=== PATIENT | male | born 1980 | race Caucasian/White ===

== ENCOUNTER 2016-11-03 09:29 | Emergency (ER) | payer OTHER ==
[~2016-11-03] VITALS: Ht 177.8 cm; Wt 64.0 kg
[~2016-11-03 09:29] MED LIST: CIPR500T4 PO; HYDR-3533 PO
[2016-11-03 09:37] VITALS: BP 129/92; PULSE 90; RESP 20; TEMP 98.1; O2SAT 97
[2016-11-03] MEDS ORDERED: PRED5TAB PO (09:51)
== END 2016-11-03 10:43 | disposition left against medical advice (07) ==
LOC: PHEFT 09:29
DX: M54.2 Cervicalgia (principal); M79.605 Pain in left leg; M54.9 Dorsalgia, unspecified; V89.2XXA Person injured in unspecified motor-vehicle accident, traffic, initial encounter
CPT/HCPCS: 99281

== ENCOUNTER 2016-11-15 17:28 | Emergency (ER) | payer OTHER ==
[~2016-11-15] VITALS: Ht 177.8 cm; Wt 68.0 kg
[~2016-11-15 17:28] MED LIST changes: -CIPR500T4 PO; -HYDR-3533 PO; +PRED5TAB PO
[2016-11-15 17:34] VITALS: BP 116/77; PULSE 60; RESP 16; TEMP 98.1; O2SAT 98
[2016-11-15] MEDS ORDERED: HYDR-3533 PO (18:01)
[2016-11-15] MEDS ORDERED: DOXY100C PO (18:01)
[2016-11-15] MEDS ORDERED: BACT800T5 PO (18:01)
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
[2016-11-15] MEDS ORDERED: ACETAMINOPHEN/HYDROcodone 325 MG/5 MG TAB PO ONE (18:15)
[2016-11-15] MEDS ORDERED: TETANUS/DIPHTHERIA TOXOID ADULT 0.5 ML VIAL IM ONE (18:15)
[2016-11-15] MEDS ORDERED: SULFAMETHOXAZOLE-TRIMETHOPRIM DS 800-160 MG TAB PO ONE (18:15)
== END 2016-11-15 19:39 | disposition home or self-care (01) ==
LOC: PHEFT 17:28
DX: L03.114 Cellulitis of left upper limb (principal); F12.10 Cannabis abuse, uncomplicated; F17.210 Nicotine dependence, cigarettes, uncomplicated; F41.9 Anxiety disorder, unspecified; Z23 Encounter for immunization
CPT/HCPCS: 90471; 90714

== ENCOUNTER 2017-02-24 08:03 | Emergency (ER) | payer SELFPAY ==
[~2017-02-24] VITALS: Ht 177.8 cm; Wt 64.0 kg
[~2017-02-24 08:03] MED LIST changes: +BACT800T5 PO; +DOXY100C PO; +HYDR-3533 PO; -PRED5TAB PO
[2017-02-24 08:08] VITALS: BP 99/61; PULSE 67; RESP 17; TEMP 98.6; O2SAT 100
[2017-02-24] MEDS ORDERED: IBUP-232 PO ×2 (08:24→10:02)
[2017-02-24] MEDS ORDERED: PRED10 PO (08:24)
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
[2017-02-24] MEDS ORDERED: oxyCODONE/ACETAMINOPHEN 5 MG/325 MG TAB PO ONE (08:45)
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
[2017-02-24 09:45] VITALS: RESP 20
[2017-02-24] MEDS ORDERED: PERC5TAB12 PO (10:02)
== END 2017-02-24 10:10 | disposition home or self-care (01) ==
LOC: PHED 08:03
DX: M54.5 Low back pain (principal); F41.9 Anxiety disorder, unspecified; K50.90 Crohn's disease, unspecified, without complications; K21.9 Gastro-esophageal reflux disease without esophagitis; F17.210 Nicotine dependence, cigarettes, uncomplicated; Z79.899 Other long term (current) drug therapy
CPT/HCPCS: 72100; 72220; 99284

== ENCOUNTER 2017-03-08 05:23 | Emergency (ER) | payer OTHER ==
[~2017-03-08] VITALS: Ht 177.8 cm; Wt 68.0 kg
[~2017-03-08 05:23] MED LIST changes: -BACT800T5 PO; -DOXY100C PO; -HYDR-3533 PO; +IBUP-232 PO; +PERC5TAB12 PO; +PRED10 PO
[2017-03-08 05:37] VITALS: BP 100/64; PULSE 62; RESP 20; TEMP 97.9
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
[2017-03-08] MEDS ORDERED: ZOFR4TAB3 SL (06:36)
[2017-03-08] MEDS ORDERED: ROBA750T PO (06:36)
[2017-03-08] MEDS ORDERED: MEDR4PAK PO (06:36)
[2017-03-08 06:40] VITALS: BP 132/76; PULSE 62; RESP 17
[2017-03-08 06:59] LABS: BLOOD, URINE NEG (NEG); GLUCOSE,URINE NEG (NEG); KETONE, URINE NEG (NEG); NITRITE,URINE NEG (NEG); PH, URINE 6.5 (5.0-8.5)
[2017-03-08] MEDS ORDERED: oxyCODONE/ACETAMINOPHEN 5 MG/325 MG TAB PO ONE (07:00)
[2017-03-08] MEDS ORDERED: ONDANSETRON ODT 4 MG TAB PO ONE (07:00)
[2017-03-08 07:09] LABS: METHOD OF COLLECTION CLEAN CATCH; URINE COLOR STRAW (YELLW/STRAW)
[2017-03-08 07:11] LABS: COMMENT (UR) CULT NOT INDICATED; CULTURE IF INDICATED CULT NOT INDICATED; SQUAMOUS EPITHELIAL CELL URINE 0-5 /hpf (0-5)
== END 2017-03-08 07:36 | disposition home or self-care (01) ==
LOC: PHED 05:23
DX: M54.5 Low back pain (principal); S40.011A Contusion of right shoulder, initial encounter; Q43.1 Hirschsprung's disease; K21.9 Gastro-esophageal reflux disease without esophagitis; K50.90 Crohn's disease, unspecified, without complications; F17.210 Nicotine dependence, cigarettes, uncomplicated
CPT/HCPCS: 70450; 71010; 72100; 72125; 73030; 81001

== ENCOUNTER 2017-03-11 15:33 | Emergency (ER) | payer SELFPAY ==
[~2017-03-11] VITALS: Ht 177.8 cm; Wt 65.7 kg
[~2017-03-11 15:33] MED LIST changes: -IBUP-232 PO; +MEDR4PAK PO; -PERC5TAB12 PO; +ROBA750T PO; +ZOFR4TAB3 SL
[2017-03-11 15:43] VITALS: BP 113/67; PULSE 93; RESP 16; TEMP 98.8; O2SAT 97
== END 2017-03-11 15:59 | disposition left against medical advice (07) ==
LOC: PHED 15:33
DX: M54.9 Dorsalgia, unspecified (principal)
CPT/HCPCS: 99281

== ENCOUNTER 2017-06-19 13:19 | Emergency (ER) | payer SELFPAY ==
[~2017-06-19] VITALS: Ht 177.8 cm; Wt 62.0 kg
[2017-06-19 13:37] VITALS: BP 120/53; PULSE 58; RESP 16; TEMP 98.2; O2SAT 98
[2017-06-19] MEDS ORDERED: SODIUM CHLOR 0.9% 1000 ML INJ 1,000 ML IV SCH (13:45)
[2017-06-19] MEDS ORDERED: HYDROmorphone HCL PF 2 MG/ML VIAL IVS ONE (13:45)
[2017-06-19] MEDS ORDERED: ONDANSETRON HCL 4 MG/2 ML VIAL IVP ONE (13:45)
[2017-06-19] MEDS ORDERED: SODIUM CHLORIDE 0.9% FLUSH 10 ML FLUSH IV FLUSH PRN (13:45)
--- NOTE | 2017-06-19 14:03 | PD ---
HPI Chief Complaint: Abdominal Pain Time Seen by Provider: 13:35 Travel History International Travel<30 days: No Contact w/Intl Traveler<30days: No Traveled to known affect area: No History of Present Illness HPI C/O DIFFUSE ABD PAIN, CRAMPY, NONRAD, 04/06, ASSOCIATED WITH MUCOSY STOOLS, STATES HAS H/O CHRON'S DISEASE. ALL: TORADOL-HIVES PSHX: HIRSCHSPRUNG, DIVERTING COLOSTOMY, TAKEDOWN, BOWEL PERFORATION REPAIR, PFSH Past Medical History Blood Disorders: No Anxiety: Yes Depression: No Cancer: No Cardiovascular Problems: No Diminished Hearing: No Endocrine: No Gastrointestinal Disorders: Yes (CROHN'S DISEASE) GERD: Yes Genitourinary: Yes Hiatal Hernia: No Immune Disorder: No Implanted Vascular Access Dvce: No Kidney Stones: Yes Musculoskeletal: Yes (BACK PAIN) Neurologic: No Psychiatric: Yes Reproductive: No Respiratory: No Immunizations Current: No Renal Failure: No Ulcer: Yes Past Surgical History 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 HEAD: Atraumatic. Normocephalic. EYES: Pupils equal and round. No scleral icterus. No injection or drainage. ENT: No nasal bleeding or discharge. Mucous membranes pink and moist. NECK: Trachea midline. No JVD. CARDIOVASCULAR: Regular rate and rhythm. RESPIRATORY: No accessory muscle use. Clear to auscultation. Breath sounds equal bilaterally. GASTROINTESTINAL: Abdomen, nondistended, HYPOACTIVE BOWEL SOUNDS, NO REBOUND, NO RIGIDITY MUSCULOSKELETAL: Extremities without clubbing, cyanosis, or edema. No obvious deformities. NEUROLOGICAL: Awake and alert. No obvious cranial nerve deficits. Motor grossly within normal limits. Five out of 5 muscle strength in the arms and legs. Normal speech. PSYCHIATRIC: Appropriate mood and affect; insight and judgment normal. Data Data Last Documented VS Vital Signs Date Time Temp Pulse Resp B/P (MAP) Pulse Ox O2 Delivery O2 Flow Rate FiO2 06/19/17 14:51 98 Room Air 06/19/17 13:37 98.2 58 16 120/53 (75) Orders Orders Complete Blood Count With Diff (06/19/17 13:45) Comprehensive Metabolic Panel (06/19/17 13:45) Lipase (06/19/17 13:45) Ct Abd/Pel W/O Iv Contrast (06/19/17 13:45) Iv Access Insert/Monitor (06/19/17 13:45) Ecg Monitoring (06/19/17 13:45) Oximetry (06/19/17 13:45) NPO (06/19/17 13:45) Sodium Chloride 0.9% Flush (Ns Flush) (06/19/17 13:45) Ondansetron Odt (Zofran Odt) (06/19/17 14:30) Hydromorphone Pf Inj (Dilaudid Pf Inj) (06/19/17 14:30) Labs Laboratory Tests Test 06/19/17 14:57 White Blood Count 7.2 TH/MM3 Red Blood Count 3.84 MIL/MM3 Hemoglobin 12.0 GM/DL Hematocrit 35.9 % Mean Corpuscular Volume 93.5 FL Mean Corpuscular Hemoglobin 31.3 PG Mean Corpuscular Hemoglobin Concent 33.5 % Red Cell Distribution Width 14.0 % Platelet Count 277 TH/MM3 Mean Platelet Volume 7.4 FL Neutrophils (%) (Auto) 60.1 % Lymphocytes (%) (Auto) 29.4 % Monocytes (%) (Auto) 7.0 % Eosinophils (%) (Auto) 2.4 % Basophils (%) (Auto) 1.1 % Neutrophils # (Auto) 4.3 TH/MM3 Lymphocytes # (Auto) 2.1 TH/MM3 Monocytes # (Auto) 0.5 TH/MM3 Eosinophils # (Auto) 0.2 TH/MM3 Basophils # (Auto) 0.1 TH/MM3 CBC Comment DIFF FINAL Differential Comment Blood Urea Nitrogen 12 MG/DL Creatinine 0.84 MG/DL Random Glucose 85 MG/DL Albumin 3.1 GM/DL Calcium Level 8.5 MG/DL Aspartate Amino Transf (AST/SGOT) 20 U/L Alanine Aminotransferase (ALT/SGPT) 26 U/L Sodium Level 138 MEQ/L Potassium Level 4.0 MEQ/L Chloride Level 105 MEQ/L Carbon Dioxide Level 28.3 MEQ/L Anion Gap 5 MEQ/L Estimat Glomerular Filtration Rate 104 ML/MIN Lipase 217 U/L [facility] Medical Decision Making Medical Screen Exam Complete: Yes Emergency Medical Condition: Yes Medical Record Reviewed: Yes Differential Diagnosis SBO V PANCREATITIS V ILEUS V CHRON'S EXACERBATION Narrative Course CBC WNL, CMP W/O MAJOR ELECTROLYTE ABNL NOR ANY ABNL LFT'S OR LIPASE....CT IS NEGATIVE FOR SBO/PERFORATION OR ANY OTHER SURGICAL EMERGENCY Diagnosis Primary Impression: ACUTE CHRON'S EXACERBATION Patient Instructions: Abdominal Pain (ED), General Instructions Scripts Tramadol (Ultram) 50 Mg Tab 50 MG PO Q6H Y for PAIN, #20 TAB 0 Refills Prov: Zander Charles MD 06/19/17 Metronidazole (Flagyl) 500 Mg Tab 500 MG PO TID for Infection for 7 Days, #21 TAB 0 Refills Prov: Zander Charles MD 06/19/17 Methylprednisolone Dosepak (Medrol Dosepak) 4 Mg Dspk 4 MG PO DIRECTED, #1 DSPK 0 Refills Per Pharmacist direction Prov: Zander Charles MD 06/19/17 Ondansetron Odt (Zofran Odt) 4 Mg Tab 4 MG SL Q6HR Y for Nausea/Vomiting, #30 TAB 0 Refills Prov: Zander Charles MD 06/19/17 Disposition: 01 DISCHARGE HOME Condition: Stable Zander Charles MD Jun 19, 2017 14:03
[2017-06-19] MEDS ORDERED: HYDROmorphone HCL PF 1 MG/ML VIAL IM ONE (14:30)
[2017-06-19] MEDS ORDERED: ONDANSETRON ODT 4 MG TAB PO ONE (14:30)
--- NOTE | 2017-06-19 14:43 | RADRPT ---
EXAM DATE/TIME: 06/19/2017 14:15 [facility] COMPARISON: CT ABDOMEN & PELVIS W/O CONTRAST, July 16, 2016, 13:29. INDICATIONS : Left lower quadrant pain and rectal bleeding. ORAL CONTRAST: No oral contrast ingested. RADIATION DOSE: 5.02 CTDIvol (mGy) MEDICAL HISTORY : Crohn's disease. Renal calculi. Gastroesophageal reflux disease.Hershprung's disease. SURGICAL HISTORY : Colon resection. Colostomy.Colostomy reversal. ENCOUNTER: Initial ACUITY: 1 week PAIN SCALE: 10/10 LOCATION: Left lower quadrant TECHNIQUE: Volumetric scanning of the abdomen and pelvis was performed. Using automated exposure control and ad justment of the mA and/or kV according to patient size, radiation dose was kept as low as reasonably achievable to obtain optimal diagnostic quality images. DICOM format image data is available electro nically for review and comparison. FINDINGS: LOWER LUNGS: The visualized lower lungs are clear. LIVER: Homogeneous density without lesion. There is no dilation of the biliary tree. No calcified gallston es. SPLEEN: Normal size without lesion. PANCREAS: Within normal limits. KIDNEYS: Normal in size and shape. There is no mass, stone, or hydronephrosis. ADRENAL GLANDS: Within normal limits. VASCULAR: There is no aortic aneurysm. BOWEL/MESENTERY: The stomach, small bowel, and colon demonstrate no acute abnormality. There is no free intraperitone al air or fluid. There are faint surgical clips and a drain in the region of the rectal wall junction with the sigmoid. ABDOMINAL WALL: Asymmetric atrophy of the right rectus abdominal musculature. RETROPERITONEUM: There is no lympha denopathy. BLADDER: No wall thickening or mass. REPRODUCTIVE: Within normal limits. INGUINAL: There is no lymphadenopathy or hernia. MUSCULOSKELETAL: Within normal limits for patient age. CONCLUSION: No acute intra-abdominal or pelvic process identified. Again faint surgical clips are noted in the rectal vau lt rectal sigmoid junction. Atrophic changes in right abdominal rectus musculature.. Espinoza Ji MD on June 19, 2017 at 14:36 Board Certified Radiologist. This report was verified electronically.
[2017-06-19 14:51] VITALS: O2SAT 98
[2017-06-19 15:06] LABS: AUTOMATED NEUTROPHIL # 4.3 TH/MM3 (1.8-7.7); BASOPHIL # 0.1 TH/MM3 (0-0.2); BASOPHIL % 1.1 % (0.0-2.0); EOSINOPHIL # 0.2 TH/MM3 (0-0.4); EOSINOPHIL % 2.4 % (0.0-4.0); HEMATOCRIT 35.9 % (39.0-51.0); LYMPH % 29.4 % (9.0-44.0); LYMPHOCYTE # 2.1 TH/MM3 (1.0-4.8); MEAN CELL VOLUME 93.5 FL (80.0-100.0); MEAN CORPUSCULAR HEMOGLOBIN 31.3 PG (27.0-34.0); MEAN CORPUSCULAR HGB CONC 33.5 % (32.0-36.0); NEUT % 60.1 % (16.0-70.0); PLATELET COUNT 277 TH/MM3 (150-450); RED BLOOD COUNT 3.84 MIL/MM3 (4.50-5.90); WHITE BLOOD COUNT 7.2 TH/MM3 (4.0-11.0)
[2017-06-19 15:09] LABS: HEMO FLAGS DIFF FINAL
[2017-06-19 15:16] LABS: CHLORIDE 105 MEQ/L (98-107); SODIUM (NA) 138 MEQ/L (136-145)
[2017-06-19 15:21] LABS: ANION GAP 5 MEQ/L (5-15); BICARBONATE 28.3 MEQ/L (21.0-32.0); BLOOD UREA NITROGEN 12 MG/DL (7-18)
[2017-06-19 15:23] LABS: ALT (GPT) 26 U/L (12-78); AST (GOT) 20 U/L (15-37)
[2017-06-19 15:24] LABS: GLOMERULAR FILTRATION RATE 104 ML/MIN (>89)
[2017-06-19 15:25] LABS: TOTAL BILIRUBIN ADULT 0.2 MG/DL (0.2-1.0)
[2017-06-19 15:26] LABS: ALKALINE PHOSPHATASE 59 U/L (45-117)
[2017-06-19] MEDS ORDERED: ULTR50TA5 PO (15:28)
[2017-06-19] MEDS ORDERED: MEDR4PAK PO (15:28)
[2017-06-19] MEDS ORDERED: METR-1 PO (15:28)
[2017-06-19] MEDS ORDERED: ZOFR4TAB3 SL (15:28)
== END 2017-06-19 15:57 | disposition home or self-care (01) ==
LOC: PHED 13:19
DX: K50.911 Crohn's disease, unspecified, with rectal bleeding (principal)
CPT/HCPCS: 74176; 80053; 83690; 85025; 96372; 99285; J1170; J2405; J7030

== ENCOUNTER 2017-06-21 10:58 | Emergency (ER) | payer SELFPAY ==
[~2017-06-21] VITALS: Ht 177.8 cm; Wt 60.9 kg
[~2017-06-21 10:58] MED LIST changes: +METR-1 PO; -PRED10 PO; -ROBA750T PO; +ULTR50TA5 PO
[2017-06-21 11:04] VITALS: BP 124/70; PULSE 95; RESP 16; TEMP 99.3; O2SAT 98
[2017-06-21] MEDS ORDERED: PROMETHAZINE HCL 25 MG TAB PO ONE (11:30)
[2017-06-21] MEDS ORDERED: PROM25TA10 PO (11:37)
--- NOTE | 2017-06-21 11:38 | PD ---
HPI Chief Complaint: Dizziness Time Seen by Provider: 11:22 Travel History International Travel<30 days: No Contact w/Intl Traveler<30days: No Traveled to known affect area: No History of Present Illness HPI Patient is a 37-year-old male who returns to emergency room with complaints of nausea with dizziness. Reports that he has history of Crohn's disease, reports that he was seen in the emergency room on June 19, 2017 for Crohn's exacerbation, he was sent home on antibiotics as well as tramadol and Zofran. Patient reports that he has been taking tramadol for pain, this is making him nauseous and dizzy. He has not filled his prescription for Zofran yet as he does not have the means to fill the script. Reports that he got different prescription for antinausea and Zofran as expensive. Patient reports that his abdomen is feeling better at this time, reports that he has been able to eat and drink. He does admit to eating hot wings yesterday which exacerbated his symptoms. Patient here requesting prescription for a different antinausea medication. Patient with no fevers or chills, no diarrhea, no other complaints at this time. PFSH Past Medical History Blood Disorders: No Anxiety: Yes Depression: No Cancer: No Cardiovascular Problems: No Diminished Hearing: No Endocrine: No Gastrointestinal Disorders: Yes (CROHN'S DISEASE) GERD: Yes Genitourinary: Yes Hiatal Hernia: No Immune Disorder: No Implanted Vascular Access Dvce: No Kidney Stones: Yes Musculoskeletal: Yes (BACK PAIN) Neurologic: No Psychiatric: Yes Reproductive: No Respiratory: No Immunizations Current: No Renal Failure: No Ulcer: Yes Tetanus Vaccination: < 5 Years Past Surgical History 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, 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) Social History Alcohol Use: Yes (occ) Tobacco Use: Yes (1/2 PACK/DAY) Substance Use: Yes (MARIJUANA) Allergies-Medications (Allergen,Severity, Reaction): Coded Allergies: ketorolac (Unverified Allergy, Severe, DIAPHORESIS, HIVES, 06/21/17) Reported Meds & Prescriptions Reported Meds & Active Scripts Active Phenergan (Promethazine HCl) 25 Mg Tablet 25 Mg PO Q6H PRN Ultram (Tramadol HCl) 50 Mg Tab 50 Mg PO Q6H PRN Flagyl (Metronidazole) 500 Mg Tab 500 Mg PO TID 7 Days Zofran Odt (Ondansetron Odt) 4 Mg Tab 4 Mg SL Q6HR PRN Review of Systems General / Constitutional: No: Fever Eyes: No: Visual changes HENT: No: Headaches Cardiovascular: No: Chest Pain or Discomfort Respiratory: No: Shortness of Breath Gastrointestinal: Positive: Nausea, No: Abdominal Pain Genitourinary: No: Dysuria Musculoskeletal: No: Pain Skin: No Rash Neurologic: Positive: Dizziness, No: Weakness Psychiatric: No: Depression Endocrine: No: Polydipsia Hematologic/Lymphatic: No: Easy Bruising Physical Exam Narrative GENERAL: NAD, NONTOXIC SKIN: Focused skin assessment warm/dry. HEAD: Atraumatic. Normocephalic. EYES: Pupils equal and round. No scleral icterus. No injection or drainage. ENT: No nasal bleeding or discharge. Mucous membranes pink and moist. NECK: Trachea midline. No JVD. CARDIOVASCULAR: Regular rate and rhythm. No murmur appreciated. RESPIRATORY: No accessory muscle use. Clear to auscultation. Breath sounds equal bilaterally. GASTROINTESTINAL: Abdomen soft, non-tender, nondistended. Hepatic and splenic margins not palpable. MUSCULOSKELETAL: No obvious deformities. No clubbing. No cyanosis. No edema. NEUROLOGICAL: Awake and alert. No obvious cranial nerve deficits. Motor grossly within normal limits. Normal speech. CN 2-12 grossly intact with no neurological deficits PSYCHIATRIC: Appropriate mood and affect; insight and judgment normal. Data Data Last Documented VS Vital Signs Date Time Temp Pulse Resp B/P (MAP) Pulse Ox O2 Delivery O2 Flow Rate FiO2 06/21/17 11:17 98 Room Air 06/21/17 11:04 99.3 95 16 124/70 (88) Orders Orders Promethazine (Phenergan) (06/21/17 11:30) MDM Medical Decision Making Medical Screen Exam Complete: Yes Emergency Medical Condition: Yes Interpretation(s) Vital Signs Date Time Temp Pulse Resp B/P (MAP) Pulse Ox O2 Delivery O2 Flow Rate FiO2 06/21/17 11:17 98 Room Air 06/21/17 11:04 99.3 95 16 124/70 (61) 98 Differential Diagnosis Differential includes nausea, Crohn's disease with exacerbation, electrolyte abnormality Narrative Course 37-year-old male who presents to emergency room with complaints of nausea with exacerbation of Crohn's disease. Patient was currently seen and treated on June 19 for similar symptoms, he is tolerating his antibiotics at this time. Patient is requesting different medications for his nausea as Zofran is expensive. Patient is nontoxic and evaluation, cranial nerves 2 to 12 grossly intact with no neurological deficits, abdomen is soft, nontender, nondistended, there are no peritoneal signs. I offered patient lab work to check his electrolytes, patient refuses bloodwork at this time, requests a prescription for a different antinausea medication. Patient understands importance of following up with a technician automatic for further workup of this Crohn's disease. Signs and symptoms of when to return to the emergency room was reviewed with patient in detail. Patient is feeling much better after phenergen. He is tolerating by mouth trial , he will return to ER as needed. Patient is appreciative of care Diagnosis Primary Impression: Nausea Patient Instructions: General Instructions Additional Instructions: Please take all medications as prescribed Please stop taking tramadol Please follow-up with your primary care doctor in 2-3 days Please follow-up with technician automatic as soon as possible Return to the emergency if symptoms worsen or progress Return to the emergency room as needed. Med/Other Pt SpecificInfo: Prescription(s) given Scripts Promethazine (Phenergan) 25 Mg Tablet 25 MG PO Q6H Y for NAUSEA OR VOMITING, #20 TAB 0 Refills Prov: Kourtney Kolb DO 06/21/17 Disposition: 01 DISCHARGE HOME Condition: Stable Kourtney Kolb DO Jun 21, 2017 11:38
== END 2017-06-21 12:11 | disposition home or self-care (01) ==
LOC: PHED 10:58
DX: R11.0 Nausea (principal); K50.90 Crohn's disease, unspecified, without complications
CPT/HCPCS: 99283; Q0169

== ENCOUNTER 2017-09-27 11:07 | Emergency (ER) | payer SELFPAY ==
[~2017-09-27 11:07] MED LIST changes: -MEDR4PAK PO; +PROM25TA10 PO; +TRAM50 PO; -ULTR50TA5 PO
[2017-09-27 11:10] VITALS: BP 133/78; PULSE 115; RESP 20; TEMP 97.9; O2SAT 92
[2017-09-27] MEDS ORDERED: SODIUM CHLORID 0.9% 500 ML INJ 500 ML IV ONE (11:30)
[2017-09-27] MEDS ORDERED: LORazepam 2 MG/ML VIAL IV PUSH ONE (11:30)
--- NOTE | 2017-09-27 11:30 | PD ---
HPI Chief Complaint: Chest Pain Time Seen by Provider: 11:24 Travel History International Travel<30 days: No Contact w/Intl Traveler<30days: No Traveled to known affect area: No History of Present Illness HPI PATIENT STATES INTERMITTENT EPISODES OF SHARP CP, ANTERIOR LEFT PEC AREA, 05/07, ONSET 3 DAYS AGO, PER PT SINCE "LEFT" HIM (AT THIS POINT PATIENT GOT TEARY EYED AND STARTED CRYING, STATING I DON'T KNOW WHAT TO DO). PATIENT DENIES SI/ HI CURRENTLY. ALL:TORADOL-(HIVES) PMHX:DENIES PSHX:BOWEL RECONSTRUCTION FROM HIRSCHSPRUNG PCP-NONE PFSH Past Medical History Blood Disorders: No Anxiety: Yes Depression: No Cancer: No Cardiovascular Problems: No Diminished Hearing: No Endocrine: No Gastrointestinal Disorders: Yes (CROHN'S DISEASE) GERD: Yes Genitourinary: Yes Hiatal Hernia: No Immune Disorder: No Implanted Vascular Access Dvce: No Kidney Stones: Yes Musculoskeletal: Yes (BACK PAIN) Neurologic: No Psychiatric: Yes Reproductive: No Respiratory: No Immunizations Current: No Renal Failure: No Ulcer: Yes Influenza Vaccination: No ?: Not Past Surgical History 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, 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) Social History Alcohol Use: Yes (occ) Tobacco Use: Yes (1/2 PACK/DAY) Substance Use: Yes (MARIJUANA) Allergies-Medications (Allergen,Severity, Reaction): Coded Allergies: ketorolac (Unverified Allergy, Severe, DIAPHORESIS, HIVES, 09/27/17) Reported Meds & Prescriptions Reported Meds & Active Scripts Active No Active Prescriptions or Reported Medications Review of Systems Except as stated in HPI: all other systems reviewed are Neg General / Constitutional: No: Fever Eyes: No: Visual changes HENT: No: Headaches Cardiovascular: Positive: Chest Pain or Discomfort Respiratory: No: Shortness of Breath Gastrointestinal: No: Abdominal Pain Genitourinary: No: Dysuria Musculoskeletal: No: Pain Skin: No Rash Neurologic: No: Weakness Psychiatric: Positive: Anxiety Endocrine: No: Polydipsia Hematologic/Lymphatic: No: Easy Bruising Physical Exam Narrative GENERAL: SKIN: Warm and dry. HEAD: Atraumatic. Normocephalic. EYES: Pupils equal and round. No scleral icterus. No injection or drainage. ENT: No nasal bleeding or discharge. Mucous membranes pink and moist. NECK: Trachea midline. No JVD. CARDIOVASCULAR: Regular rate and rhythm. RESPIRATORY: No accessory muscle use. Clear to auscultation. Breath sounds equal bilaterally. REPRODUCIBLE CHEST WALL PAIN ON PALPATION GASTROINTESTINAL: Abdomen soft, non-tender, nondistended. MUSCULOSKELETAL: Extremities without clubbing, cyanosis, or edema. No obvious deformities. NEUROLOGICAL: Awake and alert. No obvious cranial nerve deficits. Motor grossly within normal limits. Five out of 5 muscle strength in the arms and legs. Normal speech. PSYCHIATRIC: Appropriate mood and affect; insight and judgment normal. Data Data Last Documented VS Vital Signs Date Time Temp Pulse Resp B/P (MAP) Pulse Ox O2 Delivery O2 Flow Rate FiO2 09/27/17 12:20 86 20 118/78 (91) 100 09/27/17 11:39 2.00 09/27/17 11:14 Room Air 09/27/17 11:10 97.9 Orders Orders Electrocardiogram (09/27/17 11:30) Complete Blood Count With Diff (09/27/17 11:30) Comprehensive Metabolic Panel (09/27/17 11:30) D-Dimer (09/27/17 11:30) Prothrombin Time / Inr (Pt) (09/27/17 11:30) Act Partial Throm Time (Ptt) (09/27/17 11:30) Troponin I (09/27/17 11:30) Lipase (09/27/17 11:30) Chest, Single Ap (09/27/17 11:30) Ecg Monitoring (09/27/17 11:30) Iv Access Insert/Monitor (09/27/17 11:30) Oximetry (09/27/17 11:30) Sodium Chlorid 0.9% 500 Ml Inj (Ns 500 M (09/27/17 11:30) Lorazepam Inj (Ativan Inj) (09/27/17 11:30) Labs Laboratory Tests Test 12/31/17 11:52 White Blood Count 9.5 TH/MM3 Red Blood Count 4.29 MIL/MM3 Hemoglobin 12.9 GM/DL Hematocrit 38.9 % Mean Corpuscular Volume 90.8 FL Mean Corpuscular Hemoglobin 30.0 PG Mean Corpuscular Hemoglobin Concent 33.0 % Red Cell Distribution Width 15.3 % Platelet Count 307 TH/MM3 Mean Platelet Volume 7.8 FL Neutrophils (%) (Auto) 71.8 % Lymphocytes (%) (Auto) 19.1 % Monocytes (%) (Auto) 7.6 % Eosinophils (%) (Auto) 1.1 % Basophils (%) (Auto) 0.4 % Neutrophils # (Auto) 6.9 TH/MM3 Lymphocytes # (Auto) 1.8 TH/MM3 Monocytes # (Auto) 0.7 TH/MM3 Eosinophils # (Auto) 0.1 TH/MM3 Basophils # (Auto) 0.0 TH/MM3 CBC Comment DIFF FINAL Differential Comment Prothrombin Time 10.5 SEC Prothromb Time International Ratio 1.0 RATIO Activated Partial Thromboplast Time 25.1 SEC D-Dimer Quantitative (PE/DVT) 0.24 MG/L FEU Blood Urea Nitrogen 16 MG/DL Creatinine 0.95 MG/DL Random Glucose 86 MG/DL Total Protein 7.4 GM/DL Albumin 3.6 GM/DL Calcium Level 8.8 MG/DL Alkaline Phosphatase 85 U/L Aspartate Amino Transf (AST/SGOT) 31 U/L Alanine Aminotransferase (ALT/SGPT) 30 U/L Total Bilirubin 0.3 MG/DL Sodium Level 139 MEQ/L Potassium Level 4.3 MEQ/L Chloride Level 106 MEQ/L Carbon Dioxide Level 24.7 MEQ/L Anion Gap 8 MEQ/L Estimat Glomerular Filtration Rate 90 ML/MIN Troponin I 0.02 NG/ML Lipase 95 U/L [facility] Medical Decision Making Medical Screen Exam Complete: Yes Emergency Medical Condition: Yes Medical Record Reviewed: Yes Interpretation(s) NSR, 95, PAC'S, RAD, NO STEMI PATTERN, Differential Diagnosis PNA V PE V PLEURISY V STEMI V STRESS REACTION Narrative Course d dimer neg, troponin neg, ekg neg for stemi, cxr neg for pna/ptx...fulll resolution of symptoms after ativan given Diagnosis Primary Impression: Chest wall pain Patient Instructions: Chest Wall Pain (GEN), General Instructions Scripts Tramadol (Ultram) 50 Mg Tab 50 MG PO Q6H Y for PAIN, #10 TAB 0 Refills Prov: Zander Charles MD 09/27/17 Baclofen (Baclofen) 10 Mg Tab 10 MG PO Q8HR, #15 TAB 0 Refills Prov: Zander Charles MD 09/27/17 Disposition: 01 DISCHARGE HOME Condition: Stable Zander Charles MD Sep 27, 2017 11:30
[2017-09-27 11:39] VITALS: BP 145/78; PULSE 82; RESP 18; O2SAT 100
--- NOTE | 2017-09-27 11:52 | RADRPT ---
EXAM DATE/TIME: 09/27/2017 11:43 [facility] COMPARISON: CHEST SINGLE AP, March 08, 2017, 6:02. INDICATIONS : Chest pain, cough, short of breath MEDICAL HISTORY : None. SURGICAL HISTORY : None. ENCOUNTER: Initial ACUITY: 2 days PAIN SCORE: 10/10 LOCATION: Bilateral chest FINDINGS: A single view of the chest demonstrates the lungs to be symmetrically aerated without evidence of mas s, infiltrate or effusion. The cardiomediastinal contours are unremarkable. Osseous structures are intact. CONCLUSION: Normal examination. Arnaldo Collins MD on September 27, 2017 at 11:49 Board Certified Radiologist. This report was verified electronically.
[2017-09-27 12:02] LABS: AUTOMATED NEUTROPHIL # 6.9 TH/MM3 (1.8-7.7); BASOPHIL % 0.4 % (0.0-2.0); EOSINOPHIL # 0.1 TH/MM3 (0-0.4); EOSINOPHIL % 1.1 % (0.0-4.0); HEMATOCRIT 38.9 % (39.0-51.0); HEMOGLOBIN 12.9 GM/DL (13.0-17.0); LYMPH % 19.1 % (9.0-44.0); LYMPHOCYTE # 1.8 TH/MM3 (1.0-4.8); MEAN CELL VOLUME 90.8 FL (80.0-100.0); MEAN PLATELET VOLUME 7.8 FL (7.0-11.0); MONO % 7.6 % (0.0-8.0); MONOCYTE # 0.7 TH/MM3 (0-0.9); NEUT % 71.8 % (16.0-70.0); PLATELET COUNT 307 TH/MM3 (150-450); RED BLOOD COUNT 4.29 MIL/MM3 (4.50-5.90); RED CELL DISTRIBUTION WIDTH 15.3 % (11.6-17.2); WHITE BLOOD COUNT 9.5 TH/MM3 (4.0-11.0)
[2017-09-27 12:10] LABS: CHLORIDE 106 MEQ/L (98-107); SODIUM (NA) 139 MEQ/L (136-145)
[2017-09-27 12:13] LABS: CALCIUM 8.8 MG/DL (8.5-10.1)
[2017-09-27 12:14] LABS: ALBUMIN 3.6 GM/DL (3.4-5.0); BICARBONATE 24.7 MEQ/L (21.0-32.0); BLOOD UREA NITROGEN 16 MG/DL (7-18); GLUCOSE,RANDOM 86 MG/DL (74-106); LIPASE 95 U/L (73-393)
[2017-09-27 12:16] LABS: D-DIMER 0.24 MG/L FEU (0.00-0.50); PROTHROMBIN TIME - PATIENT 10.5 SEC (9.8-11.6)
[2017-09-27 12:17] LABS: ALT (GPT) 30 U/L (12-78); AST (GOT) 31 U/L (15-37); CREATININE 0.95 MG/DL (0.60-1.30); GLOMERULAR FILTRATION RATE 90 ML/MIN (>89)
[2017-09-27 12:18] LABS: TOTAL BILIRUBIN ADULT 0.3 MG/DL (0.2-1.0); TOTAL PROTEIN 7.4 GM/DL (6.4-8.2)
[2017-09-27 12:19] LABS: ALKALINE PHOSPHATASE 85 U/L (45-117)
[2017-09-27 12:20] VITALS: BP 118/78; PULSE 86; RESP 20; O2SAT 100
[2017-09-27 12:22] LABS: TROPONIN I 0.02 NG/ML (0.02-0.05)
[2017-09-27] MEDS ORDERED: TRAM50 PO (12:52)
[2017-09-27] MEDS ORDERED: BACL10TA PO (12:52)
[2017-09-27 13:02] VITALS: BP 128/77; PULSE 77; RESP 18; O2SAT 100
--- NOTE | 2017-09-27 22:19 | EKG ---
Date Performed: 09/27/2017 Time Performed: 11:12:18 PTAGE: 37 years EKG: Sinus rhythm WITH MARKED SINUS ARRHYTHMIA POSSIBLE LEFT ATRIAL ENLARGEMENT BORDERLINE RIGHT AXIS DEVIATION BORDER LINE ECG INTERPRETATION BASED ON A DEFAULT AGE OF 40 YEARS Compared to prior electrocardiogram, rate has increased and anterior ST elevation no longer present. PREVIOUS TRACING : 08/15/2008 11.10 DOCTOR: Aquilino Valadez Interpretating Date/Time 09/27/2017 22:18:12
== END 2017-09-27 13:09 | disposition home or self-care (01) ==
LOC: PHED 11:07
DX: R07.89 Other chest pain (principal); R94.31 Abnormal electrocardiogram [ECG] [EKG]; K50.90 Crohn's disease, unspecified, without complications; K21.9 Gastro-esophageal reflux disease without esophagitis; F17.210 Nicotine dependence, cigarettes, uncomplicated
CPT/HCPCS: 71010; 80053; 83690; 84484; 85025; 85379; 85610; 85730; 93005; 96361; 96374; 99284; J2060; J7040

== ENCOUNTER 2017-09-28 05:43 | Emergency (ER) | payer OTHER ==
[~2017-09-28] VITALS: Ht 177.8 cm; Wt 67.0 kg
[~2017-09-28 05:43] MED LIST changes: +BACL10TA PO
[2017-09-28 05:58] VITALS: BP 137/83; PULSE 69; RESP 16; TEMP 98.7; O2SAT 98
--- NOTE | 2017-09-28 06:20 | PD ---
HPI Chief Complaint: Psychiatric Symptoms Time Seen by Provider: 05:48 Travel History International Travel<30 days: No Contact w/Intl Traveler<30days: No Traveled to known affect area: No History of Present Illness HPI 37-year-old white male presents to emergency department report Rogel act by PD. Patient states that he was drinking earlier this evening. He had just from his 3 days ago. He had drove over to where he felt that she was staying. He stayed in his car for several hours. They had called the police on him. When the police contacted him it was noted that he had text suicide suggestive as edges to his . The patient states that he is not suicidal. He states that he cannot live without her. This did not mean he was suicidal. He denies any plan on self-harm. No homicidal ideation. No toxic ingestions. He does report being sick recently. He has had a cough, congestion and general malaise. He was seen at the emergency Department in [place] yesterday for noncardiac chest pain. There was most likely anxiety. Patient states that he is not eating or sleeping. He does admit to feeling depressed. PFSH Past Medical History Narrative Medical Anxiety, chronic back pain, Crohn's disease, Hirschsprung's, Blood Disorders: No Anxiety: Yes Depression: No Cancer: No Cardiovascular Problems: No Diabetes: No Patient Takes Glucophage: No Diminished Hearing: No Endocrine: No Gastrointestinal Disorders: Yes (CROHN'S DISEASE) GERD: Yes Genitourinary: Yes Hiatal Hernia: No Immune Disorder: No Implanted Vascular Access Dvce: No Kidney Stones: Yes Musculoskeletal: Yes (BACK PAIN) Neurologic: No Psychiatric: Yes Reproductive: No Respiratory: No Immunizations Current: Yes Renal Failure: No Ulcer: Yes Tetanus Vaccination: < 5 Years Influenza Vaccination: No Past Surgical History Narrative Surgical Multiple bowel surgery including colectomy, colostomy with reversal. 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, 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) Social History Alcohol Use: Yes (occ) Tobacco Use: Yes (1/2 PACK/DAY) Substance Use: Yes (MARIJUANA) Allergies-Medications (Allergen,Severity, Reaction): Coded Allergies: ketorolac (Unverified Allergy, Severe, DIAPHORESIS, HIVES, 09/28/17) Reported Meds & Prescriptions Reported Meds & Active Scripts Active No Active Prescriptions or Reported Medications Review of Systems General / Constitutional: No: Fever Eyes: No: Visual changes HENT: Positive: Headaches, Congestion Cardiovascular: No: Chest Pain or Discomfort Respiratory: Positive: Cough, No: Shortness of Breath Gastrointestinal: Positive: Nausea, Abdominal Pain Genitourinary: No: Dysuria Musculoskeletal: No: Pain Skin: No Rash Neurologic: No: Weakness, Headache Psychiatric: No: Depression Endocrine: No: Polydipsia Hematologic/Lymphatic: No: Easy Bruising Physical Exam Narrative GENERAL: Well-nourished, well-developed patient. Patient is tearful. SKIN: Warm and dry. HEAD: Normocephalic and atraumatic. EYES: No scleral icterus. No injection or drainage. ENT: No nasal drainage noted. Mucous membranes pink. Airway patent. NECK: Supple, trachea midline. Moves head freely without obvious discomfort. CARDIOVASCULAR: Regular rate and rhythm without murmurs, gallops, or rubs. RESPIRATORY: Breath sounds equal bilaterally. No accessory muscle use. GASTROINTESTINAL: Abdomen soft, non-tender, nondistended. EXTREMITIES: No cyanosis or edema. BACK: Nontender without obvious deformity. No CVA tenderness. NEURO: Patient is alert and oriented. no sensorimotor deficits. Nonfocal. Normal speech. PSYCH: No delusions. No auditory or visual hallucinations. Data Data Last Documented VS Vital Signs Date Time Temp Pulse Resp B/P (MAP) Pulse Ox O2 Delivery O2 Flow Rate FiO2 09/28/17 05:58 98.7 69 16 137/83 (101) 98 Orders Orders Complete Blood Count With Diff (09/28/17 05:49) Comprehensive Metabolic Panel (09/28/17 05:49) Psych Screen (09/28/17 05:49) Drug Screen, Random Urine (09/28/17 05:49) Alcohol (Ethanol) (09/28/17 05:49) Salicylates (Aspirin) (09/28/17 05:49) Tylenol (Acetaminophen) (09/28/17 05:49) MDM Medical Decision Making Medical Screen Exam Complete: Yes Emergency Medical Condition: Yes Medical Record Reviewed: Yes Differential Diagnosis MDM: High Differential diagnoses: Schizophrenia, schizoaffective disorder, bipolar, anxiety, depression, adjustment reaction, mood disorder NOS, ODD, depressive disorder NOS, dementia, dementia with agitation, psychosis NOS, substance induced mood disorder, DMDD, Asperger syndrome, infection,electrolyte abnormality, malingering. Narrative Course Mental health screening discussed with the patient. Psychiatric screen ordered. The patient is been medically cleared. This is medical clearance for psychiatric admission Diagnosis Primary Impression: Medical clearance for psychiatric admission Scripts No Active Prescriptions or Reported Meds Condition: Matthieu Kc Sep 28, 2017 06:20
[2017-09-28 06:48] LABS: ALBUMIN 4.1 GM/DL (3.4-5.0); ALT (GPT) 33 U/L (12-78); AST (GOT) 34 U/L (15-37); BICARBONATE 26.5 MEQ/L (21.0-32.0); BLOOD UREA NITROGEN 10 MG/DL (7-18); CALCIUM 9.1 MG/DL (8.5-10.1); CHLORIDE 103 MEQ/L (98-107); CREATININE 1.05 MG/DL (0.60-1.30); GLOMERULAR FILTRATION RATE 80 ML/MIN (>89); GLUCOSE,RANDOM 102 MG/DL (74-106); SODIUM (NA) 137 MEQ/L (136-145)
[2017-09-28 06:50] LABS: ALKALINE PHOSPHATASE 86 U/L (45-117); TOTAL BILIRUBIN ADULT 0.3 MG/DL (0.2-1.0)
[2017-09-28 07:00] LABS: ACETAMINOPHEN LESS THAN 2.0 MCG/ML (10.0-30.0)
--- NOTE | 2017-09-28 10:12 | PD ---
Data Data Last Documented VS Vital Signs Date Time Temp Pulse Resp B/P (MAP) Pulse Ox O2 Delivery O2 Flow Rate FiO2 09/28/17 05:58 98.7 69 16 137/83 (101) 98 Orders Orders Comprehensive Metabolic Panel (09/28/17 05:49) Psych Screen (09/28/17 05:49) Alcohol (Ethanol) (09/28/17 05:49) Salicylates (Aspirin) (09/28/17 05:49) Tylenol (Acetaminophen) (09/28/17 05:49) Diet Regular Basic (09/28/17 Breakfast) Ed Discharge Order (09/28/17 10:09) Labs Laboratory Tests Test 09/28/17 06:15 Blood Urea Nitrogen 10 MG/DL Creatinine 1.05 MG/DL Random Glucose 102 MG/DL Total Protein 8.0 GM/DL Albumin 4.1 GM/DL Calcium Level 9.1 MG/DL Alkaline Phosphatase 86 U/L Aspartate Amino Transf (AST/SGOT) 34 U/L Alanine Aminotransferase (ALT/SGPT) 33 U/L Total Bilirubin 0.3 MG/DL Sodium Level 137 MEQ/L Potassium Level 4.1 MEQ/L Chloride Level 103 MEQ/L Carbon Dioxide Level 26.5 MEQ/L Anion Gap 8 MEQ/L Estimat Glomerular Filtration Rate 80 ML/MIN Salicylates Level 4.5 MG/DL Acetaminophen Level LESS THAN 2.0 MCG/ML Ethyl Alcohol Level 46 MG/DL [facility] Medical Record Reviewed: Yes Supervised Visit with WALI: Yes Narrative Course Pt arrives to the ER as a Rogel act. He has no suicidal ideation or homicidal ideation. He has a strong social support network. He has noticed bars. He has no history of prior self-harm. The premise of the Rogel act was inappropriate and the patient is safe for discharge. Rogel Act lifted by the undersigned Diagnosis Primary Impression: Medical clearance for psychiatric admission Med/Other Pt SpecificInfo: No Change to Meds Scripts No Active Prescriptions or Reported Meds Disposition: 01 DISCHARGE HOME Condition: Stable Sebastian Rodriguez MD Sep 28, 2017 10:12
== END 2017-09-28 11:00 | disposition home or self-care (01) ==
LOC: NEPD 05:43
DX: F99 Mental disorder, not otherwise specified (principal); R05 Cough; R09.81 Nasal congestion; R53.81 Other malaise; F41.9 Anxiety disorder, unspecified; K21.9 Gastro-esophageal reflux disease without esophagitis; F17.200 Nicotine dependence, unspecified, uncomplicated; Z87.19 Personal history of other diseases of the digestive system
CPT/HCPCS: 80053; 80307; 99284

== ENCOUNTER 2017-10-28 09:53 | Emergency (ER) | payer SELFPAY ==
[~2017-10-28] VITALS: Ht 177.8 cm; Wt 66.0 kg
[2017-10-28 09:56] VITALS: BP 140/71; PULSE 92; RESP 16; TEMP 98.8; O2SAT 98
[2017-10-28] MEDS ORDERED: BENZ100 PO (10:36)
[2017-10-28] MEDS ORDERED: OSEL75 PO (10:36)
--- NOTE | 2017-10-28 10:39 | PD ---
HPI Chief Complaint: Cold / Flu Symptoms Time Seen by Provider: 10:29 Travel History International Travel<30 days: No Contact w/Intl Traveler<30days: No Traveled to known affect area: No History of Present Illness HPI 37-year-old male presents for evaluation of cough, congestion, myalgias. Symptoms started yesterday evening. The cough is productive of yellow sputum. No aggravating or relieving factors. He reports one episode of posttussive emesis today. Denies abdominal pain, nausea, diarrhea. He reports that a close friend was diagnosed with influenza A 4 days ago. He has no other complaints at this time. PFSH Past Medical History Blood Disorders: No Anxiety: Yes Depression: No Cancer: No Cardiovascular Problems: No Diabetes: No Diminished Hearing: No Endocrine: No Gastrointestinal Disorders: Yes (CROHN'S DISEASE) GERD: Yes Genitourinary: Yes Hiatal Hernia: No Immune Disorder: No Implanted Vascular Access Dvce: No Kidney Stones: Yes Musculoskeletal: Yes (BACK PAIN) Neurologic: No Psychiatric: Yes Reproductive: No Respiratory: No Immunizations Current: Yes Renal Failure: No Ulcer: Yes Influenza Vaccination: No Past Surgical History 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, 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) Social History Alcohol Use: Yes (occ) Tobacco Use: Yes (1/2 PACK/DAY) Substance Use: Yes (MARIJUANA) Allergies-Medications (Allergen,Severity, Reaction): Coded Allergies: ketorolac (Unverified Allergy, Severe, DIAPHORESIS, HIVES, 10/28/17) Reported Meds & Prescriptions Reported Meds & Active Scripts Active Tessalon Perles (Benzonatate) 100 Mg Cap 200 Mg PO TID PRN Tamiflu (Oseltamivir Phosphate) 75 Mg Cap 75 Mg PO BID 5 Days Review of Systems Except as stated in HPI: all other systems reviewed are Neg Physical Exam Narrative GENERAL: Well-developed well-nourished male in no acute distress SKIN: Warm and dry. HEAD: Atraumatic. Normocephalic. EYES: Pupils equal and round. No scleral icterus. No injection or drainage. ENT: No nasal bleeding or discharge. Mucous membranes pink and moist. NECK: Trachea midline. No JVD. CARDIOVASCULAR: Regular rate and rhythm. No murmur appreciated. RESPIRATORY: No accessory muscle use. Clear to auscultation. Breath sounds equal bilaterally. GASTROINTESTINAL: Abdomen soft, non-tender, nondistended. Hepatic and splenic margins not palpable. Data Data Last Documented VS Vital Signs Date Time Temp Pulse Resp B/P (MAP) Pulse Ox O2 Delivery O2 Flow Rate FiO2 10/28/17 09:56 98.8 92 16 140/71 (94) 98 Orders Orders Ed Discharge Order (10/28/17 10:36) [facility] Medical Decision Making Medical Screen Exam Complete: Yes Emergency Medical Condition: Yes Medical Record Reviewed: Yes Differential Diagnosis Influenza, bronchitis, pneumonia, sinusitis Narrative Course 37-year-old male presents with 2 days of cough, congestion, myalgias. His friend was diagnosed with influenza A 4 days ago and this is most likely diagnosis in this case. Overall the patient appears well and is stable for outpatient treatment. I discussed the potential benefits of Tamiflu and the patient will be given a prescription and if he chooses to use it is recommended that he started today. He will be given Tessalon for cough. Diagnosis Primary Impression: Upper respiratory infection Departure Forms: Tests/Procedures, Work Release Enter return to work date: Oct 30, 2017 Additional Instructions: Stay well-hydrated and well-nourished, get plenty of rest. Follow-up with primary care physician as needed and return for any emergent medical conditions. Med/Other Pt SpecificInfo: Prescription(s) given Scripts Benzonatate (Tessalon Perles) 100 Mg Cap 200 MG PO TID Y for COUGH, #20 CAP 0 Refills Prov: Darlin Russell MD 10/28/17 Oseltamivir (Tamiflu) 75 Mg Cap 75 MG PO BID for Mgmt Viral Infection for 5 Days, #10 CAP 0 Refills Prov: Darlin Russell MD 10/28/17 Disposition: 01 DISCHARGE HOME Condition: Stable Sree Flower Oct 28, 2017 10:39
== END 2017-10-28 10:51 | disposition home or self-care (01) ==
LOC: PHEFT 09:53
DX: J06.9 Acute upper respiratory infection, unspecified (principal); F17.200 Nicotine dependence, unspecified, uncomplicated
CPT/HCPCS: 99284

== ENCOUNTER 2017-11-21 06:13 | Emergency (ER) | payer OTHER ==
[~2017-11-21] VITALS: Ht 177.8 cm; Wt 65.0 kg
[~2017-11-21 06:13] MED LIST changes: -BACL10TA PO; +BENZ100 PO; -METR-1 PO; +OSEL75 PO; -PROM25TA10 PO; -TRAM50 PO; -ZOFR4TAB3 SL
[2017-11-21 06:17] VITALS: BP 132/71; PULSE 59; RESP 18; TEMP 97.8; O2SAT 98
[2017-11-21 06:26] VITALS: BP 132/71; PULSE 59; RESP 18; TEMP 97.8; O2SAT 98
[2017-11-21 06:36] VITALS: BP 124/68; PULSE 68; RESP 18; O2SAT 100
[2017-11-21] MEDS ORDERED: HYDROmorphone HCL PF 2 MG/ML VIAL IM ONE (06:45)
[2017-11-21] MEDS ORDERED: ORPHENADRINE INJ 60 MG/2 ML AMP IM ONE (06:45)
--- NOTE | 2017-11-21 06:51 | PD ---
HPI Chief Complaint: Back/ Neck Pain or Injury Time Seen by Provider: 06:35 Travel History International Travel<30 days: No Contact w/Intl Traveler<30days: No Traveled to known affect area: No History of Present Illness HPI The patient is a 37-year-old male that complains of left sided neck and left- sided low back pain after slip and fall at work at 8:30 PM yesterday. He reported to work today and they told him to go to the emergency department to get checked. The patient is a ex chef. He does have a history of polysubstance abuse in the past. He does have some radiation of pain to the left thigh. He denies any numbness or weakness in the left leg. The neck pain does not radiate out the arm. The left shoulder discomfort is very minimal and he has full range of motion of the left shoulder. PFSH Past Medical History Blood Disorders: No Anxiety: Yes Depression: No Cancer: No Cardiovascular Problems: No Diabetes: No Diminished Hearing: No Endocrine: No Gastrointestinal Disorders: Yes (CROHN'S DISEASE) GERD: Yes Genitourinary: Yes Hiatal Hernia: No Immune Disorder: No Implanted Vascular Access Dvce: No Kidney Stones: Yes Musculoskeletal: Yes (BACK PAIN) Neurologic: No Psychiatric: Yes Reproductive: No Respiratory: No Immunizations Current: Yes Renal Failure: No Ulcer: Yes Influenza Vaccination: Yes Past Surgical History 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 His vital signs are normal. SKIN: Focused skin assessment warm/dry. HEAD: Atraumatic. Normocephalic. EYES: Pupils equal and round. No scleral icterus. No injection or drainage. ENT: No nasal bleeding or discharge. Mucous membranes pink and moist. NECK: Trachea midline. No JVD. There is tenderness on the left trapezius to direct palpation. No posterior spinous process tenderness is present and there is no deformity of the cervical spine. CARDIOVASCULAR: Regular rate and rhythm. No murmur appreciated. RESPIRATORY: No accessory muscle use. Clear to auscultation. Breath sounds equal bilaterally. GASTROINTESTINAL: Abdomen soft, non-tender, nondistended. Hepatic and splenic margins not palpable. No guarding or rebound is present. MUSCULOSKELETAL: No obvious deformities. No clubbing. No cyanosis. No edema. The left shoulder shows minimal tenderness and he has full range of motion there. Straight leg raising is normal bilaterally and deep tendon reflexes are 0+1 bilaterally both patella Achilles and pinprick is normal. There is tenderness to the left of the lumbar spine, all this is muscular tenderness. No posterior spinous process tenderness is present. NEUROLOGICAL: Awake and alert. No obvious cranial nerve deficits. Motor grossly within normal limits. Normal speech. PSYCHIATRIC: Appropriate mood and affect; insight and judgment normal. Data Data Last Documented VS Vital Signs Date Time Temp Pulse Resp B/P (MAP) Pulse Ox O2 Delivery O2 Flow Rate FiO2 11/21/17 06:36 68 18 124/68 (86) 100 Room Air 11/21/17 06:[address] Cerv Spine W/O Contrast (11/21/17 06:42) Ct Lumb Spine W/O Contrast (11/21/17 06:42) Hydromorphone Pf Inj (Dilaudid Pf Inj) (11/21/17 06:45) Orphenadrine Inj (Norflex Inj) (11/21/17 06:45) [facility] Medical Decision Making Medical Screen Exam Complete: Yes Emergency Medical Condition: Yes Medical Record Reviewed: Yes Differential Diagnosis Trapezius strain, acute cervical strain, cervical spine fracture, cervical spine subluxation, lumbar fracture, acute lumbar strain, paraspinous muscle strain Narrative Course It is now 0700 and the patient is taken over by Dr. Mckenna. Jacob Savage MD Nov 21, 2017 06:51
--- NOTE | 2017-11-21 07:17 | PD ---
HPI Chief Complaint: Back/ Neck Pain or Injury Time Seen by Provider: 07:16 Travel History International Travel<30 days: No Contact w/Intl Traveler<30days: No Traveled to known affect area: No History of Present Illness HPI Care assumed from Dr. Savage please see his note. The patient is a 37-year-old male that complains of left sided neck and left- sided low back pain after slip and fall at work at 8:30 PM yesterday. He reported to work today and they told him to go to the emergency department to get checked. The patient is a pantry chef. He does have a history of polysubstance abuse in the past. He does have some radiation of pain to the left thigh. He denies any numbness or weakness in the left leg. The neck pain does not radiate out the arm. The left shoulder discomfort is very minimal and he has full range of motion of the left shoulder. PFSH Past Medical History Blood Disorders: No Anxiety: Yes Depression: No Cancer: No Cardiovascular Problems: No Diabetes: No Diminished Hearing: No Endocrine: No Gastrointestinal Disorders: Yes (CROHN'S DISEASE) GERD: Yes Genitourinary: Yes Hiatal Hernia: No Immune Disorder: No Implanted Vascular Access Dvce: No Kidney Stones: Yes Musculoskeletal: Yes (BACK PAIN) Neurologic: No Psychiatric: Yes Reproductive: No Respiratory: No Immunizations Current: Yes Renal Failure: No Ulcer: Yes Influenza Vaccination: Yes Past Surgical History 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 His vital signs are normal. SKIN: Focused skin assessment warm/dry. HEAD: Atraumatic. Normocephalic. EYES: Pupils equal and round. No scleral icterus. No injection or drainage. ENT: No nasal bleeding or discharge. Mucous membranes pink and moist. NECK: Trachea midline. No JVD. There is tenderness on the left trapezius to direct palpation. No posterior spinous process tenderness is present and there is no deformity of the cervical spine. CARDIOVASCULAR: Regular rate and rhythm. No murmur appreciated. RESPIRATORY: No accessory muscle use. Clear to auscultation. Breath sounds equal bilaterally. GASTROINTESTINAL: Abdomen soft, non-tender, nondistended. Hepatic and splenic margins not palpable. No guarding or rebound is present. MUSCULOSKELETAL: No obvious deformities. No clubbing. No cyanosis. No edema. The left shoulder shows minimal tenderness and he has full range of motion there. Straight leg raising is normal bilaterally and deep tendon reflexes are 0+1 bilaterally both patella Achilles and pinprick is normal. There is tenderness to the left of the lumbar spine, all this is muscular tenderness. No posterior spinous process tenderness is present. NEUROLOGICAL: Awake and alert. No obvious cranial nerve deficits. Motor grossly within normal limits. Normal speech. PSYCHIATRIC: Appropriate mood and affect; insight and judgment normal. Data Data Last Documented VS Vital Signs Date Time Temp Pulse Resp B/P (MAP) Pulse Ox O2 Delivery O2 Flow Rate FiO2 11/21/17 07:27 18 11/21/17 06:36 68 124/68 (86) 100 Room Air 11/21/17 06:[address] Cerv Spine W/O Contrast (11/21/17 06:42) Ct Lumb Spine W/O Contrast (11/21/17 06:42) Hydromorphone Pf Inj (Dilaudid Pf Inj) (11/21/17 06:45) Orphenadrine Inj (Norflex Inj) (11/21/17 06:45) [facility] Medical Decision Making Medical Screen Exam Complete: Yes Emergency Medical Condition: Yes Differential Diagnosis Musculoskeletal pain, fractures, malingering Narrative Course Assessment and plan discussed the patient at bedside. Last 72 [address] Impressions [address] 11/21/1742 Signed Impressions: Service Date/Time: Tuesday, November 21, 2017 06:57 - CONCLUSION: Possible mild right paracentral to lateral recess disc protrusion. Arnaldo Collins MD Cervical Spine CT 11/21/1742 Signed Impressions: Service Date/Time: Tuesday, November 21, 2017 06:54 - CONCLUSION: 1. Moderate central to left-sided disc protrusion at the C4-C5 level. This appears slightly worse on the current exam. 2. Mild central to right sided disc protrusion at the C5-C6 level which is unchanged. Arnaldo Collins MD Diagnosis Primary Impression: Musculoskeletal pain Patient Instructions: General Instructions Additional Instructions: Encouraged nonsteroidal anti-inflammatories warm heat gentle stretching and strengthening and massage. Follow-up with PCP. Return when she with any onset of new symptoms. May return to work tomorrow. Med/Other Pt SpecificInfo: Prescription(s) given Scripts Cyclobenzaprine (Flexeril) 10 Mg Tab 10 MG PO TID for Muscle Spasm, #15 TAB 0 Refills Prov: Mir Mckenna MD 11/21/17 Hydrocodone-Acetaminophen (Hydrocodone-Acetaminophen) 5-325 mg Tab 1 TAB PO Q6H Y for PAIN, #15 TAB 0 Refills Prov: Mir Mckenna MD 11/21/17 Disposition: 01 DISCHARGE HOME Condition: Good Mir Mckenna MD Nov 21, 2017 07:17
[2017-11-21 07:27] VITALS: RESP 18
--- NOTE | 2017-11-21 07:33 | RADRPT ---
EXAM DATE/TIME: 11/21/2017 06:54 CORRECTION Corrected on: November 21, 2017; [facility] COMPARISON: CT CERVICAL SPINE W/O CONTRAST, March 08, 2017, 5:59. INDICATIONS : Fall.Left neck and shoulder pain. RADIATION DOSE: 26.22 CTDIvol (mGy) MEDICAL HISTORY : Renal calculi. Chrohn's, fx spine SURGICAL HISTORY : Colostomy. Reversal of colostomy ENCOUNTER: Initial ACUITY: 1 day PAIN SCALE: 5/10 LOCATION: Left neck TECHNIQUE: Volumetric scanning of the cervical spine was performed. Multiplanar reconstructions in the sagittal, coronal and oblique axial planes were performed. Using automated exposure control and adjustment o f the mA and/or kV according to patient size, radiation dose was kept as low as reasonably achievable to obtain optimal diagnostic quality images. DICOM format image data is available electronically f or review and comparison. FINDINGS: VERTEBRAE: Normal vertebral body height. ALIGNMENT: No evidence of subluxation. C2-C3: The bony spinal canal is normal in size. No evidence of disc bulge or herniation. The neural forami na are bilaterally patent. C3-C4: The bony spinal canal is normal in size. No evidence of disc bulge or herniation. The neural forami na are bilaterally patent. C4-C5: The bony spinal canal is normal in size. There is a moderate central to left paracentral disc protru gifty. This appears to abut the anterior aspect of the cord. This was present on the prior exam appear s mildly worse. There are minimal posterior osteophytes. The neural foramina are bilaterally patent. C5-C6: The bony spinal canal is normal in size. There is a mild central to right paracentral disc protrusion . This appears unchanged. There are minimal posterior osteophytes. The neural foramina are bilaterall y patent. C6-C7: The bony spinal canal is normal in size. No evidence of disc bulge or herniation. The neural forami na are bilaterally patent. C7-T1: The bony spinal canal is normal in size. No evidence of disc bulge or herniation. The neural forami na are bilaterally patent. CONCLUSION: 1. Moderate central to left-sided disc protrusion at the C4-C5 level. This appears slightly worse on the current exam. 2. Mild central to right sided disc protrusion at the C5-C6 level which is unchanged. Arnaldo Collins MD on November 21, 2017 at 7:22 Board Certified Radiologist. This report was verified electronically. Arnaldo Collins MD on November 21, 2017 at 7:38 Board Certified Radiologist. This report was verified electronically.
--- NOTE | 2017-11-21 07:38 | RADRPT ---
EXAM DATE/TIME: 11/21/2017 06:57 [facility] COMPARISON: No previous studies available for comparison. INDICATIONS : Fall, left neck and shoulder pain. RADIATION DOSE: 17.78 CTDIvol (mGy) MEDICAL HISTORY : Chrohn's, renal calculi, fx spine SURGICAL HISTORY : Colostomy. Reversal of colostomy ENCOUNTER: Initial ACUITY: 1 day PAIN SCALE: 6/10 LOCATION: Left Paraspinal lower back TECHNIQUE: Volumetric scanning of the lumbar spine was performed. Multiplanar reconstructions in the sagittal, coronal and oblique axial planes were performed. Using automated exposure control and adjustment of the mA and/or kV according to patient size, radiation dose was kept as low as reasonably achievable t o obtain optimal diagnostic quality images. DICOM format image data is available electronically for review and comparison. FINDINGS: VERTEBRAE: Normal vertebral body height. ALIGNMENT: No evidence of subluxation. T12-L1: The thecal sac has a normal diameter. No evidence of disc bulge or protrusion. The neural foramina are patent bilaterally. L1-L2: The thecal sac has a normal diameter. No evidence of disc bulge or protrusion. The neural foramina are patent bilaterally. L2-L3: The thecal sac has a normal diameter. No evidence of disc bulge or protrusion. The neural foramina are patent bilaterally. L3-L4: There is a possible mild right lateral recess disc protrusion. The neural foramina are patent bilater ally. L4-L5: The thecal sac has a normal diameter. No evidence of disc bulge or protrusion. The neural foramina are patent bilaterally. L5-S1: The thecal sac has a normal diameter. No evidence of disc bulge or protrusion. The neural foramina are patent bilaterally. CONCLUSION: Possible mild right paracentral to lateral recess disc protrusion. Arnaldo Collins MD on November 21, 2017 at 7:31 Board Certified Radiologist. This report was verified electronically.
[2017-11-21] MEDS ORDERED: HYDR-3516 PO (07:55)
[2017-11-21] MEDS ORDERED: CYCL10TA PO (07:55)
== END 2017-11-21 08:09 | disposition home or self-care (01) ==
LOC: PHED 06:13
DX: M79.1 Myalgia (principal); M50.221 Other cervical disc displacement at C4-C5 level; K50.90 Crohn's disease, unspecified, without complications; F41.9 Anxiety disorder, unspecified; F17.210 Nicotine dependence, cigarettes, uncomplicated; W01.0XXA Fall on same level from slipping, tripping and stumbling without subsequent striking against object, initial encounter; Y99.0 Civilian activity done for income or pay; Z88.8 Allergy status to other drugs, medicaments and biological substances
CPT/HCPCS: 72125; 72131; 96372; 99284; J1170; J2360

== ENCOUNTER 2017-11-25 08:14 | Emergency (ER) | payer OTHER ==
[~2017-11-25] VITALS: Ht 177.8 cm; Wt 64.8 kg
[~2017-11-25 08:14] MED LIST changes: -BENZ100 PO; +CYCL10TA PO; +HYDR-3516 PO; -OSEL75 PO
[2017-11-25 08:19] VITALS: BP 127/75; PULSE 61; RESP 16; TEMP 97.3; O2SAT 99
--- NOTE | 2017-11-25 08:38 | PD ---
HPI Chief Complaint: Musculoskeletal Complaint Time Seen by Provider: 08:22 Travel History International Travel<30 days: No Contact w/Intl Traveler<30days: No Traveled to known affect area: No History of Present Illness HPI This is a 37-year-old male who presents requesting a work note. He states that on November 21, he slipped while at work and strained the left side of his neck and lower back. He was seen in the emergency department and given prescription for pain medication and muscle relaxers. He states that he is actually feeling much better. He has no further lower back pain. He does continue to have some left-sided neck pain. He has had issues with left-sided neck pain in the past and has had intermittent paresthesias in the left arm as a result of this in the past. He states that he has had a few episodes of brief tingling in the left arm no focal weakness, numbness. He denies any current paresthesias. No midline posterior neck pain. He states that he went to work today and was told he needed to come back to the emergency department for a return to work note. He wants to work today and feels like he can do this. He has an appointment next week with his primary physician. He is getting set up to see a Workmen's Comp. physician as well. Patient states he does not want any further testing or treatment in the emergency department, he just needs a note for work. He denies any saddle paresthesias, bowel or bladder dysfunction. No associated fever, chills. Patient adamantly and repeatedly denies current or past IV drug abuse. Symptoms are mild in severity. Sore in nature. Aggravated by bending and twisting. PFSH Past Medical History Blood Disorders: No Anxiety: Yes Depression: No Cancer: No Cardiovascular Problems: No Diabetes: No Diminished Hearing: No Endocrine: No Gastrointestinal Disorders: Yes (CROHN'S DISEASE) GERD: Yes Genitourinary: Yes Hiatal Hernia: No Immune Disorder: No Implanted Vascular Access Dvce: No Kidney Stones: Yes Musculoskeletal: Yes (BACK PAIN) Neurologic: No Psychiatric: Yes Reproductive: No Respiratory: No Immunizations Current: Yes Renal Failure: No Ulcer: Yes Past Surgical History 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, 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) Social History Alcohol Use: Yes (occ) Tobacco Use: Yes (1/2 PACK/DAY) Substance Use: Yes (MARIJUANA) Allergies-Medications (Allergen,Severity, Reaction): Coded Allergies: ketorolac (Unverified Allergy, Severe, DIAPHORESIS, HIVES, 11/25/17) Reported Meds & Prescriptions Reported Meds & Active Scripts Active Flexeril (Cyclobenzaprine HCl) 10 Mg Tab 10 Mg PO TID Hydrocodone-Acetaminophen 5-325 mg Tab 1 Tab PO Q6H PRN Review of Systems Except as stated in HPI: all other systems reviewed are Neg Physical Exam Narrative GENERAL: Alert, well nourished, well appearing patient resting on the bed in no acute distress. Vital Signs reviewed SKIN: Focused skin assessment warm/dry. No obvious track root. HEAD: Atraumatic. Normocephalic. EYES: Pupils equal and round. No scleral icterus. No injection or drainage. ENT: No nasal bleeding or discharge. Mucous membranes pink and moist. NECK: Trachea midline. No JVD. Spontaneous, full range of motion with no meningismus Positive tenderness at left paraspinal muscles in lower cervical region. No midline tenderness to palpation along cervical, thoracic or lumbar spine. CARDIOVASCULAR: Regular rate and rhythm. No murmur appreciated. Extremities warm and well perfused with bounding peripheral pulses RESPIRATORY: No accessory muscle use. Clear to auscultation. Breath sounds equal bilaterally. Breathing easily and speaking in full sentences GASTROINTESTINAL: Abdomen soft, non-tender, nondistended. Normal bowel sounds. No rigid, rebound, guarding MUSCULOSKELETAL: No obvious deformities. No clubbing. No cyanosis. No edema. Compartments are soft NEUROLOGICAL: Awake and alert. No obvious cranial nerve deficits. Motor grossly within normal limits. Normal speech. Sensation intact and symmetric in all extremities. Normal unassisted gait. Negative straight leg raise bilaterally. No pronator drift. PSYCHIATRIC: Appropriate mood and affect; insight and judgment normal. Data Data Last Documented VS Vital Signs Date Time Temp Pulse Resp B/P (MAP) Pulse Ox O2 Delivery O2 Flow Rate FiO2 11/25/17 08:31 16 11/25/17 08:19 97.3 61 127/75 (92) 99 MDM Medical Decision Making Medical Screen Exam Complete: Yes Emergency Medical Condition: Yes Differential Diagnosis Cervical strain, no evidence of spinal compromise, degenerative disc disease, disc bulge Narrative Course The patient had imaging on his previous visit. He states that his symptoms are actually improving. He has no evidence of spinal compromise in the emergency department. He has an appointment next week with his primary physician. He is in the process of setting up appointment with Workmen's Comp. Patient understands the importance of close outpatient follow-up. He understands he may require further testing and treatment as an outpatient including but not limited to MRI, physical therapy. He understands strict return indications. He is comfortable with this plan and eager to go home. Diagnosis Primary Impression: Cervical strain Qualified Codes: S16.1XXD - Strain of muscle, fascia and tendon at neck level , subsequent encounter Referrals: Primary Care Physician 2 days Patient Instructions: Cervical Neck Strain Exercises (GEN), Cervical Strain (DC ), General Instructions Departure Forms: Tests/Procedures, Work Release Enter return to work date: Nov 25, 2017 Special Instructions: No excessive bending. No heavy lifting. These restrictions are in place until cleared by outpatient physician Additional Instructions: Continue current home medications. No alcohol or driving after narcotic or muscle relaxer. You must follow-up with primary physician and/or workman's comp physician within the next 2-3 days. You may require further testing and treatment as an outpatient including but not limited to MRI, physical therapy. Med/Other Pt SpecificInfo: No Change to Meds Disposition: 01 DISCHARGE HOME Condition: Stable Christine Brewer MD Nov 25, 2017 08:38
== END 2017-11-25 08:56 | disposition home or self-care (01) ==
LOC: PHED 08:14
DX: S16.1XXD Strain of muscle, fascia and tendon at neck level, subsequent encounter (principal); W01.0XXD Fall on same level from slipping, tripping and stumbling without subsequent striking against object, subsequent encounter
CPT/HCPCS: 99281

== ENCOUNTER 2017-12-27 10:35 | Emergency (ER) | payer SELFPAY ==
[~2017-12-27] VITALS: Ht 177.8 cm; Wt 64.0 kg
[2017-12-27 10:40] VITALS: BP 127/63; PULSE 57; RESP 15; TEMP 98.6; O2SAT 99
[2017-12-27] MEDS ORDERED: ZOFR4TAB3 SL (11:27)
--- NOTE | 2017-12-27 11:27 | PD ---
HPI Chief Complaint: GI Complaint Time Seen by Provider: 11:18 Travel History International Travel<30 days: No Contact w/Intl Traveler<30days: No Traveled to known affect area: No History of Present Illness HPI This is the 37-year-old male presented here complaining of nausea vomiting and diarrhea since this morning. Patient states that he had poorly cooked chicken yesterday and since then he has been having nausea and vomiting and diarrhea. Vomiting is nonbilious non-projectile nonbloody. Diarrhea is nonbloody and watery. Patient denies any fever or night sweats. Mild abdominal pain that gets relieved with bowel movement. No recent travel or sick contacts. PFSH Past Medical History Blood Disorders: No Anxiety: Yes Depression: No Cancer: No Cardiovascular Problems: No Diabetes: No Diminished Hearing: No Endocrine: No Gastrointestinal Disorders: Yes (CROHN'S DISEASE) GERD: Yes Genitourinary: Yes Hiatal Hernia: No Immune Disorder: No Implanted Vascular Access Dvce: No Kidney Stones: Yes Musculoskeletal: Yes (BACK PAIN) Neurologic: No Psychiatric: Yes Reproductive: No Respiratory: No Immunizations Current: Yes Renal Failure: No Ulcer: Yes Past Surgical History 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 SKIN: Focused skin assessment warm/dry. HEAD: Atraumatic. Normocephalic. EYES: Pupils equal and round. No scleral icterus. No injection or drainage. ENT: No nasal bleeding or discharge. Mucous membranes pink and moist. NECK: Trachea midline. No JVD. CARDIOVASCULAR: Regular rate and rhythm. No murmur appreciated. RESPIRATORY: No accessory muscle use. Clear to auscultation. Breath sounds equal bilaterally. GASTROINTESTINAL: Abdomen soft, non-tender, nondistended. Hepatic and splenic margins not palpable. MUSCULOSKELETAL: No obvious deformities. No clubbing. No cyanosis. No edema. NEUROLOGICAL: Awake and alert. No obvious cranial nerve deficits. Motor grossly within normal limits. Normal speech. PSYCHIATRIC: Appropriate mood and affect; insight and judgment normal. Data Data Last Documented VS Vital Signs Date Time Temp Pulse Resp B/P (MAP) Pulse Ox O2 Delivery O2 Flow Rate FiO2 12/27/17 10:40 98.6 57 15 127/63 (84) 99 Orders Orders Ed Discharge Order (12/27/17 11:26) [facility] Medical Decision Making Medical Screen Exam Complete: Yes Emergency Medical Condition: Yes Differential Diagnosis Gastroenteritis, gastritis. Narrative Course This is a 37-year-old male presented ER complaining of nausea vomiting and diarrhea after eating poorly cooked chicken. Patient is not sick appearing physical examination is unremarkable. Patient is here for Dr. sahni. Patient is stable to be discharged and given a prescription for Zofran and discussed with him that if symptoms persist or do not improve that he is to return to the ER immediately meanwhile he has to keep himself well hydrated. Diagnosis Primary Impression: Gastroenteritis Additional Instructions: Drink lots of fluids, return to er if symptoms change or do not improve. Scripts Ondansetron Odt (Zofran Odt) 4 Mg Tab 4 MG SL Q12HR Y for Nausea/Vomiting, #7 TAB 0 Refills Prov: Chuck Downing MD 12/27/17 Disposition: 01 DISCHARGE HOME Condition: Stable Chuck Downing MD Dec 27, 2017 11:27
== END 2017-12-27 11:36 | disposition home or self-care (01) ==
LOC: PHED 10:35
DX: K52.9 Noninfective gastroenteritis and colitis, unspecified (principal); F41.9 Anxiety disorder, unspecified; K21.9 Gastro-esophageal reflux disease without esophagitis; F17.200 Nicotine dependence, unspecified, uncomplicated; Z87.19 Personal history of other diseases of the digestive system; Z87.442 Personal history of urinary calculi
CPT/HCPCS: 99283

== ENCOUNTER 2018-01-19 12:58 | Emergency (ER) | payer SELFPAY ==
[~2018-01-19] VITALS: Ht 177.8 cm; Wt 66.0 kg
[~2018-01-19 12:58] MED LIST changes: -CYCL10TA PO; -HYDR-3516 PO; +ZOFR4TAB3 SL
[2018-01-19 13:05] VITALS: BP 111/56; PULSE 90; RESP 16; TEMP 99.1; O2SAT 99
[2018-01-19] MEDS ORDERED: methylPREDNISolone SOD SUCC 125 MG/2 ML VIAL IM ONE (14:45)
[2018-01-19] MEDS ORDERED: ACETAMINOPHEN/HYDROcodone 325 MG/5 MG TAB PO ONE (14:45)
[2018-01-19] MEDS ORDERED: methylPREDNISolone SOD SUCC 125 MG/2 ML VIAL IV PUSH ONE (14:45)
[2018-01-19] MEDS ORDERED: ORPHENADRINE INJ 60 MG/2 ML AMP IM ONE (14:45)
--- NOTE | 2018-01-19 15:21 | PD ---
HPI Chief Complaint: Back/ Neck Pain or Injury Time Seen by Provider: 14:23 Travel History International Travel<30 days: No Contact w/Intl Traveler<30days: No Traveled to known affect area: No History of Present Illness HPI 37y male presents emergency department evaluation of low back pain that started this morning. Says that he was carrying a pot of potatoes off of the stove while at work today when he turned, twisting his back and fell to the ground because of the pain.. Patient says that his has a history of back pain after falling through the storm drain but has not been a problem for a number of years. Says he used Flexeril and Aspercreme today without significant relief. Patient points to the right side of his lower lumbar region. Says that the pain is severe, worse with movement and movement of the legs. Says he has some radiation to his anterior thigh. Has difficulty walking secondary to pain. States that his right leg position of comfort is flexed and externally rotated.He denies fever, chills, saddle anesthesia, leg weakness, loss of bowel or bladder function. Denies chronic medical issues. PFSH Past Medical History Blood Disorders: No Anxiety: Yes Depression: No Cancer: No Cardiovascular Problems: No Diabetes: No Diminished Hearing: No Endocrine: No Gastrointestinal Disorders: Yes (CROHN'S DISEASE) GERD: Yes Genitourinary: Yes Hiatal Hernia: No Immune Disorder: No Implanted Vascular Access Dvce: No Kidney Stones: Yes Musculoskeletal: Yes (BACK PAIN) Neurologic: No Psychiatric: Yes Reproductive: No Respiratory: No Immunizations Current: Yes Renal Failure: No Ulcer: Yes Tetanus Vaccination: < 5 Years Past Surgical History 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, 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) Social History Alcohol Use: No (denies) Tobacco Use: Yes (1/2 PACK/DAY) Substance Use: Yes (MARIJUANA) Allergies-Medications (Allergen,Severity, Reaction): Coded Allergies: ketorolac (Unverified Allergy, Severe, DIAPHORESIS, HIVES, 01/19/18) Reported Meds & Prescriptions Reported Meds & Active Scripts Active Robaxin (Methocarbamol) 500 Mg Tab 500 Mg PO TID 3 Days Medrol Dosepak (Methylprednisolone) 4 Mg Dspk 4 Mg PO DIRECTED Per Pharmacist direction Review of Systems Except as stated in HPI: all other systems reviewed are Neg Physical Exam Narrative GENERAL: Well-nourished, well-developed patient. SKIN: Focused skin assessment warm/dry. HEAD: Normocephalic. EYES: No scleral icterus. No injection or drainage. NECK: Supple, trachea midline. No JVD or lymphadenopathy. CARDIOVASCULAR: Regular rate and rhythm without murmurs, gallops, or rubs. RESPIRATORY: Breath sounds equal bilaterally. No accessory muscle use. GASTROINTESTINAL: Abdomen soft, non-tender, nondistended. no CVAT MUSCULOSKELETAL: No cyanosis, or edema. BACK: No CVA tenderness. No rash. No point tenderness on palpation of the spine. TTP to R lumbar paraspinous muscles. No step off or deformity. Patient noted to have slightly hyperactive DTRs (2-3/5) both upper and lower extremities. Bilateral lower extremities neurovascular intact. Grade 5/5 strength. Data Data Last Documented VS Vital Signs Date Time Temp Pulse Resp B/P (MAP) Pulse Ox O2 Delivery O2 Flow Rate FiO2 01/19/18 13:05 99.1 90 16 111/56 (74) 99 Orders Orders Acetamin-Hydrocod 325-5 Mg ([place] 5-325 (01/19/18 14:45) Orphenadrine Inj (Norflex Inj) (01/19/18 14:45) Methylprednisolone So Succ Inj (Solumedr (01/19/18 14:45) Methylprednisolone So Succ Inj (Solumedr (01/19/18 14:45) Ed Discharge Order (01/19/18 15:27) MDM Medical Decision Making Medical Screen Exam Complete: Yes Emergency Medical Condition: Yes Differential Diagnosis muscle spasms, sciatica, lumbago Narrative Course 37y male presents emergency department evaluation of low back pain that started this morning. Says that he was carrying a pot of potatoes off of the stove while at work today when he turned, twisting his back and fell to the ground because of the pain this morning. Patient says that his has a history of back pain after falling through the storm drain but has not been a problem for a number of years. Says he used Flexeril and Aspercreme today without significant relief. Patient points to the right side of his lower lumbar region. Says that the pain is severe, worse with movement and movement of the legs. Says he has some radiation to his anterior thigh. Has difficulty walking secondary to pain. States that his right leg position of comfort is flexed and externally rotated.He denies fever, chills, saddle anesthesia, leg weakness, loss of bowel or bladder function. Denies chronic medical issues. Vital signs stable. His exam findings consistent with muscle spasms to the right paraspinous muscles. Patient did appear to be in significant distress because of the pain. SoluMedrol, Norflex, hydrocodone administered emergency department today. Patient be discharged with Robaxin and Medrol Dosepak. Is advised to follow with primary care physician. Return for worsening or persistent symptoms. Diagnosis Primary Impression: Low back pain Additional Impression: Muscle spasm Referrals: Primary Care Physician Departure Forms: Tests/Procedures, Work Release Enter return to work date: Jan 22, 2018 Additional Instructions: Perform light stretches of the lower back and legs, and alternate heat and ice packs. If you develop increased pain, weakness, fever, chills, or bowel or bladder issues, return to the ED for further treatment and evaluation. Follow up with your primary care physician in 2-3 days. Scripts Methocarbamol (Robaxin) 500 Mg Tab 500 MG PO TID for Muscle Spasm for 3 Days, TAB 0 Refills Prov: Bernarda Barksdale MD 01/19/18 Methylprednisolone Dosepak (Medrol Dosepak) 4 Mg Dspk 4 MG PO DIRECTED, #1 DSPK 0 Refills Per Pharmacist direction Prov: Bernarda Barksdale MD 01/19/18 Disposition: DISCHARGE HOME Condition: Stable Nichole Marques Jan 19, 2018 15:21
[2018-01-19] MEDS ORDERED: ROBA500T PO (15:26)
[2018-01-19] MEDS ORDERED: MEDR4PAK PO (15:26)
== END 2018-01-19 15:57 | disposition home or self-care (01) ==
LOC: PHEFT 12:58
DX: M54.5 Low back pain (principal); M62.838 Other muscle spasm; F12.90 Cannabis use, unspecified, uncomplicated; F17.200 Nicotine dependence, unspecified, uncomplicated
CPT/HCPCS: 96372; 99283; J2360; J2930

== ENCOUNTER 2018-02-17 19:44 | Emergency (ER) | payer SELFPAY ==
[~2018-02-17 19:44] MED LIST changes: +MEDR4PAK PO; +ROBA500T PO; -ZOFR4TAB3 SL
== END 2018-02-17 19:47 | disposition left against medical advice (07) ==
LOC: PHED 19:44
DX: Z53.21 Procedure and treatment not carried out due to patient leaving prior to being seen by health care provider (principal)
CPT/HCPCS: 99281

== ENCOUNTER 2018-02-18 07:46 | Emergency (ER) | payer SELFPAY ==
[~2018-02-18] VITALS: Ht 177.8 cm; Wt 70.0 kg
[2018-02-18 07:46] VITALS: BP 127/73; PULSE 80; RESP 20; TEMP 98; O2SAT 100
--- NOTE | 2018-02-18 08:24 | PD ---
HPI Chief Complaint: Anxiety Time Seen by Provider: 07:51 Travel History International Travel<30 days: No Contact w/Intl Traveler<30days: No Traveled to known affect area: No History of Present Illness HPI Patient is a 37-year-old male who comes in complaining of shortness of breath and palpitations. He says he was walking to work when he started to feel this way and called 911. He says he has been feeling badly since his left him yesterday. He is tearful and admits to being very upset. He says he is currently staying with his father. He denies chest pain currently, but says he had some earlier. He denies any recent travel, leg swelling or leg pain. He is a smoker. He denies illicit drug use. Severity is mild to moderate. PFSH Past Medical History Blood Disorders: No Anxiety: Yes Depression: No Cancer: No Cardiovascular Problems: No Diabetes: No Diminished Hearing: No Endocrine: No Gastrointestinal Disorders: Yes (CROHN'S DISEASE) GERD: Yes Genitourinary: Yes Hiatal Hernia: No Immune Disorder: No Implanted Vascular Access Dvce: No Kidney Stones: Yes Musculoskeletal: Yes (BACK PAIN) Neurologic: No Psychiatric: Yes Reproductive: No Respiratory: No Immunizations Current: Yes Renal Failure: No Ulcer: Yes Past Surgical History 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, 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) Social History Alcohol Use: No (denies) Tobacco Use: Yes (1/2 PACK/DAY) Substance Use: Yes (MARIJUANA) Allergies-Medications (Allergen,Severity, Reaction): Coded Allergies: ketorolac (Unverified Allergy, Severe, DIAPHORESIS, HIVES, 02/18/18) Reported Meds & Prescriptions Reported Meds & Active Scripts Active No Active Prescriptions or Reported Medications Review of Systems Except as stated in HPI: all other systems reviewed are Neg General / Constitutional: No: Fever, Chills Eyes: No: Blurred Vision HENT: No: Headaches Cardiovascular: Positive: Chest Pain or Discomfort, Palpitations Respiratory: Positive: Shortness of Breath Gastrointestinal: No: Nausea, Vomiting Musculoskeletal: No: Myalgias, Edema Skin: No Rash, No Change in Pigmentation Neurologic: No: Weakness, Dizziness Psychiatric: Positive: Anxiety Physical Exam Narrative GENERAL: Awake and alert, tearful. SKIN: Focused skin assessment warm/dry. No wounds or signs of infection. HEAD: Atraumatic. Normocephalic. EYES: Pupils equal and round. No scleral icterus. Extraocular movements intact. ENT: Mucous membranes pink and moist. NECK: Trachea midline. No JVD. CARDIOVASCULAR: Regular rate and rhythm. No murmur appreciated. RESPIRATORY: No accessory muscle use. Clear to auscultation. Breath sounds equal bilaterally. GASTROINTESTINAL: Abdomen soft, non-tender, nondistended. MUSCULOSKELETAL: No obvious deformities. No clubbing. No cyanosis. No edema. NEUROLOGICAL: Awake and alert. No obvious cranial nerve deficits. Motor grossly within normal limits. Normal speech. PSYCHIATRIC: Appropriate mood and affect; insight and judgment normal. Data Data Last Documented VS Vital Signs Date Time Temp Pulse Resp B/P (MAP) Pulse Ox O2 Delivery O2 Flow Rate FiO2 02/18/18 07:53 70 02/18/18 07:46 98.0 20 127/73 (91) 100 MDM Medical Decision Making Medical Screen Exam Complete: Yes Emergency Medical Condition: Yes Medical Record Reviewed: Yes Interpretation(s) ECG shows normal sinus rhythm at a rate of 78, no ST elevation or depression, T- wave inversions in lead III and aVF. Differential Diagnosis Anxiety versus dehydration versus electrolyte abnormality Narrative Course Patient is a 37-year-old male who comes in complaining of shortness of breath and palpitations. He is tearful on exam, and says he is very stressed because his left him. He is offered blood testing including cardiac enzymes as well as a chest x-ray. He is offered symptomatic treatment. However, at this time he wishes to leave before having anything done. I explained to him that this could be anxiety or something more serious, however he does not want to stay for any testing. He is awake, alert, oriented 4. He voices understanding of the risks, including serious illness or of leaving AGAINST MEDICAL ADVICE. He has elected to sign out AMA. AMA: The risks of leaving against medical advice without further evaluation treatment were discussed with the patient. These risks include cardiac dysfunction, cardiac dysrhythmia, possible heart attack, possible stroke or . The patient indicated understanding of these risks and appeared to have the capacity to make this decision. Diagnosis Primary Impression: Anxiety Scripts No Active Prescriptions or Reported Meds Disposition: 07 AGAINST MEDICAL ADVICE Condition: Stable Mariposa Keating MD February 18, 2018 08:24
--- NOTE | 2018-02-19 07:29 | EKG ---
Date Performed: 02/18/2018 Time Performed: 07:43:30 PTAGE: 37 years EKG: Sinus rhythm WITH SINUS ARRHYTHMIA WITH SHORT UT INTERVAL BORDERLINE LEFT AXIS DEVIATION VOLTAGE CRITERIA FOR LVH ABNORMAL ECG INTERPRETATION BASED ON A DEFAULT AGE OF 40 YEARS PREVIOUS TRACING : 09/27/2017 11.12 DOCTOR: Debra Nunes Interpretating Date/Time 02/19/2018 07:23:46
== END 2018-02-18 08:27 | disposition left against medical advice (07) ==
LOC: PHED 07:46
DX: F41.9 Anxiety disorder, unspecified (principal); Z53.21 Procedure and treatment not carried out due to patient leaving prior to being seen by health care provider; R00.2 Palpitations; F17.210 Nicotine dependence, cigarettes, uncomplicated; R94.31 Abnormal electrocardiogram [ECG] [EKG]
CPT/HCPCS: 93005; 99283

== ENCOUNTER 2018-02-19 11:40 | Emergency (ER) | payer SELFPAY ==
[~2018-02-19] VITALS: Ht 177.8 cm; Wt 62.0 kg
[2018-02-19 11:49] VITALS: BP 131/87; PULSE 87; RESP 18; TEMP 97.9; O2SAT 97
[2018-02-19] MEDS ORDERED: SODIUM CHLORIDE 0.9% FLUSH 10 ML FLUSH IVF PRN (12:45)
[2018-02-19] MEDS ORDERED: ONDANSETRON ODT 4 MG TAB PO ONE (12:45)
[2018-02-19] MEDS ORDERED: SODIUM CHLOR 0.9% 1000 ML INJ 1,000 ML IV ONE (12:45)
[2018-02-19] MEDS ORDERED: LORazepam 1 MG TAB PO ONE (12:45)
--- NOTE | 2018-02-19 13:07 | PD ---
HPI Chief Complaint: GI Complaint Time Seen by Provider: 12:15 Travel History International Travel<30 days: No Contact w/Intl Traveler<30days: No Traveled to known affect area: No History of Present Illness HPI Patient is 37-year-old male presents emergency department for evaluation of abdominal discomfort. Patient is been here 2 times in the past 3 days. Very complaints. He actually left without being seen in one is seen by my colleague Dr. Alcantara for chest, she recommended lab work and EKG in the emergency department he did not want to stay for advice. Patient states that today he is just not been feeling well states he thinks his Crohn's is flaring. He again radiates the history that he just from his and his been having a lot of stress trying to move out of the house. He states he has lost 15 pounds in 2 days. He states he was feeling this way yesterday as well. States he just has no appetite, nausea without vomiting. No diarrhea no blood in stool no cramping. States last time he had a Crohn's flare he had to be admitted to the hospital because of impaction. He states he has been having regular bowel movements. Denies any fever chest pain shortness of breath at this time. Moderate, context as his is leaving him, associated signs and symptoms as above, duration as above PFSH Past Medical History Blood Disorders: No Anxiety: Yes Depression: No Cancer: No Cardiovascular Problems: No Diabetes: No Diminished Hearing: No Endocrine: No Gastrointestinal Disorders: Yes (CROHN'S DISEASE) GERD: Yes Genitourinary: Yes Hiatal Hernia: No Immune Disorder: No Implanted Vascular Access Dvce: No Kidney Stones: Yes Musculoskeletal: Yes (BACK PAIN) Neurologic: No Psychiatric: Yes Reproductive: No Respiratory: No Immunizations Current: Yes Renal Failure: No Ulcer: Yes Past Surgical History 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 Cries intermittently during exam SKIN: Focused skin assessment warm/dry. HEAD: Atraumatic. Normocephalic. EYES: Pupils equal and round. No scleral icterus. No injection or drainage. ENT: No nasal bleeding or discharge. Mucous membranes pink and moist. NECK: Trachea midline. No JVD. CARDIOVASCULAR: Regular rate and rhythm. No murmur appreciated. 2+ bilateral equal pulses in all 4 extremities RESPIRATORY: No accessory muscle use. Clear to auscultation. Breath sounds equal bilaterally. GASTROINTESTINAL: Abdomen soft, non-tender, nondistended. Hepatic and splenic margins not palpable. No rebound no percussive tenderness. Normal active bowel sounds MUSCULOSKELETAL: No obvious deformities. No clubbing. No cyanosis. No edema. NEUROLOGICAL: Awake and alert. No obvious cranial nerve deficits. Motor grossly within normal limits. Normal speech. PSYCHIATRIC: Appropriate mood and affect; insight and judgment normal. Data Data Last Documented VS Vital Signs Date Time Temp Pulse Resp B/P (MAP) Pulse Ox O2 Delivery O2 Flow Rate FiO2 02/19/18 13:15 74 16 107/74 (85) 98 Room Air 02/19/18 11:49 97.9 Orders Orders Electrocardiogram (02/19/18 12:35) Ckmb (Isoenzyme) Profile (02/19/18 12:35) Complete Blood Count With Diff (02/19/18 12:35) Comprehensive Metabolic Panel (02/19/18 12:35) Troponin I (02/19/18 12:35) Ecg Monitoring (02/19/18 12:35) Iv Access Insert/Monitor (02/19/18 12:35) Oximetry (02/19/18 12:35) Oxygen Administration (02/19/18 12:35) Sodium Chloride 0.9% Flush (Ns Flush) (02/19/18 12:45) Ondansetron Odt (Zofran Odt) (02/19/18 12:45) Lorazepam (Ativan) (02/19/18 12:45) Sodium Chlor 0.9% 1000 Ml Inj (Ns 1000 M (02/19/18 12:45) Labs Laboratory Tests Test 02/19/18 13:40 White Blood Count 7.7 TH/MM3 Red Blood Count 4.23 MIL/MM3 Hemoglobin 13.8 GM/DL Hematocrit 41.2 % Mean Corpuscular Volume 97.4 FL Mean Corpuscular Hemoglobin 32.7 PG Mean Corpuscular Hemoglobin Concent 33.6 % Red Cell Distribution Width 14.5 % Platelet Count 280 TH/MM3 Mean Platelet Volume 7.4 FL Neutrophils (%) (Auto) 75.6 % Lymphocytes (%) (Auto) 17.7 % Monocytes (%) (Auto) 5.8 % Eosinophils (%) (Auto) 0.3 % Basophils (%) (Auto) 0.6 % Neutrophils # (Auto) 5.9 TH/MM3 Lymphocytes # (Auto) 1.4 TH/MM3 Monocytes # (Auto) 0.4 TH/MM3 Eosinophils # (Auto) 0.0 TH/MM3 Basophils # (Auto) 0.0 TH/MM3 CBC Comment DIFF FINAL Differential Comment Albumin 4.0 GM/DL Sodium Level 140 MEQ/L Potassium Level 3.5 MEQ/L Chloride Level 106 MEQ/L MDM Medical Decision Making Medical Screen Exam Complete: Yes Emergency Medical Condition: Yes Differential Diagnosis Anxiety reaction, Crohn's flare, dehydration, acute kidney injury, ACS unlikely , OR unlikely, PE OR Narrative Course Patient room to the emergency department, given Ativan 1 mg p.o. as he states he is not driving home, basic labs been ordered, liter normal saline which he completed. At 1410 he approached the nursing station and stated that he needed to leave because he had to take care of his house and moving efforts. I counseled the patient that I only have his CBC back which is normal, still waiting on chemistries, I reviewed his EKG which shows sinus rhythm left axis deviation and normal R-wave transition, no concerning ST segment changes intervals within normal limits. He states he has to leave. I reiterated that he cannot drive after taking Ativan he verbalized understanding. Discussed that I am still waiting his test results at this point he is welcome to sign out AGAINST MEDICAL ADVICE and I discussed the risk of and permanent disability in this patient he verbalized understanding and agreed to the wrist. He signed formal AMA paper and then ambulated from the emergency department no distress peer Diagnosis Primary Impression: Abdominal pain Qualified Codes: R10.9 - Unspecified abdominal pain Scripts No Active Prescriptions or Reported Meds Disposition: 07 AGAINST MEDICAL ADVICE Condition: Stable Homer Wilson MD February 19, 2018 13:07
[2018-02-19 13:10] VITALS: O2SAT 98
[2018-02-19 13:15] VITALS: BP 107/74; PULSE 74; RESP 16; O2SAT 98
[2018-02-19 14:02] LABS: AUTOMATED NEUTROPHIL # 5.9 TH/MM3 (1.8-7.7); BASOPHIL % 0.6 % (0.0-2.0); EOSINOPHIL % 0.3 % (0.0-4.0); HEMATOCRIT 41.2 % (39.0-51.0); HEMOGLOBIN 13.8 GM/DL (13.0-17.0); LYMPH % 17.7 % (9.0-44.0); LYMPHOCYTE # 1.4 TH/MM3 (1.0-4.8); MEAN CELL VOLUME 97.4 FL (80.0-100.0); MEAN CORPUSCULAR HEMOGLOBIN 32.7 PG (27.0-34.0); MEAN CORPUSCULAR HGB CONC 33.6 % (32.0-36.0); MEAN PLATELET VOLUME 7.4 FL (7.0-11.0); MONO % 5.8 % (0.0-8.0); MONOCYTE # 0.4 TH/MM3 (0-0.9); NEUT % 75.6 % (16.0-70.0); PLATELET COUNT 280 TH/MM3 (150-450); RED BLOOD COUNT 4.23 MIL/MM3 (4.50-5.90); RED CELL DISTRIBUTION WIDTH 14.5 % (11.6-17.2); WHITE BLOOD COUNT 7.7 TH/MM3 (4.0-11.0)
[2018-02-19 14:08] LABS: CHLORIDE 106 MEQ/L (98-107); SODIUM (NA) 140 MEQ/L (136-145)
[2018-02-19 14:11] LABS: BLOOD UREA NITROGEN 9 MG/DL (7-18); CALCIUM 8.9 MG/DL (8.5-10.1); GLUCOSE,RANDOM 84 MG/DL (74-106)
[2018-02-19 14:14] LABS: ALT (GPT) 30 U/L (12-78); AST (GOT) 30 U/L (15-37); GLOMERULAR FILTRATION RATE 85 ML/MIN (>89)
[2018-02-19 14:16] LABS: TOTAL BILIRUBIN ADULT 0.5 MG/DL (0.2-1.0); TOTAL PROTEIN 7.4 GM/DL (6.4-8.2)
[2018-02-19 14:17] LABS: ALKALINE PHOSPHATASE 75 U/L (45-117)
[2018-02-19 14:20] LABS: TROPONIN I LESS THAN 0.02 NG/ML (0.02-0.05)
--- NOTE | 2018-02-20 13:54 | EKG ---
Date Performed: 02/19/2018 Time Performed: 12:43:47 PTAGE: 37 years EKG: Sinus rhythm BORDERLINE LEFT AXIS DEVIATION VOLTAGE CRITERIA FOR LVH ABNORMAL ECG Compared to PREVIOUS TRACING , AL interval continues to be short. PREVIOUS TRACIN02/18/2018 07.43 DOCTOR: Marc Smith Interpretating Date/Time 02/20/2018 13:54:10
== END 2018-02-19 14:10 | disposition left against medical advice (07) ==
LOC: PHED 11:40
DX: R10.9 Unspecified abdominal pain (principal); R94.31 Abnormal electrocardiogram [ECG] [EKG]; K50.90 Crohn's disease, unspecified, without complications; F41.9 Anxiety disorder, unspecified; K21.9 Gastro-esophageal reflux disease without esophagitis; F17.200 Nicotine dependence, unspecified, uncomplicated; F12.90 Cannabis use, unspecified, uncomplicated; Z87.442 Personal history of urinary calculi; Z53.20 Procedure and treatment not carried out because of patient's decision for unspecified reasons
CPT/HCPCS: 80053; 82550; 82552; 84484; 85025; 93005; 96360; 99284; J7030